=== PATIENT | male | born 1945 | race Caucasian/White ===

== ENCOUNTER 2018-09-07 02:19 | Outpatient (CLI) | payer MEDICARE, SELFPAY ==
[2018-09-07 11:53] LABS: Anion Gap 9.4 mmol/L (3-11); BUN 22 mg/dL (7-18); CO2 28.6 mmol/L (21.0-32.0); CREATININE 0.89 mg/dL (0.70-1.30); Calcium 8.8 mg/dL (8.5-10.1); Chloride 105 mmol/L (98-107); Cholesterol 147 mg/dL (50-200); Glucose 88 mg/dL (70-100); HDL Cholesterol 51 mg/dL (40-60); LDL CHOLESTEROL 84 mg/dL (<100); Potassium 4.3 mmol/L (3.5-5.1); Sodium 143 mmol/L (136-145); Triglyceride 77 mg/dL (30-150)
== END 2018-09-07 02:39 ==
PROVIDERS: PCP Family Medicine; Visit Provider Family Medicine
DX: I25.10 Atherosclerotic heart disease of native coronary artery without angina pectoris (principal)
CPT/HCPCS: 36415; 80048; 80061; 83721

== ENCOUNTER 2018-09-13 11:17 | Day surgery (SDC) | payer MEDICARE, SELFPAY ==
[2018-09-13] MEDS: Lactated Ringers 1,000 ML 30 ML IV (12:00)
--- NOTE | 2018-09-13 13:08 | W.COLOREPORT ---
Date of service: 09/13/18 Time of Service: 13:09 Colonoscopy Report Date of procedure: 09/13/18 Pre-op diagnosis general: Family History of colon cancer Post-op diagnosis procedure note: other (Normal Colon to the cecum) Procedure: Colonoscopy to the cecum Surgeon: Adonis Sandoval Anesthesia proc note operative: MAC (Simi Romero CRNA; ASA 2 Mallampati class II) Estimated blood loss (mL): 0 Pathology: none sent Complications: None Disposition: same day Indications: 73-year-old male presenting for colorectal cancer screening with a family history of colorectal cancer. He is been asymptomatic since last colonoscopy which was unremarkable. The procedure has been reviewed with him in the risks discussed. All his questions were answered to his satisfaction. Consent was obtained to proceed with colonoscopy. Prep: Miralax/Dulcolax (Colon prep excellent) Findings: Examined the colon from cecum to anus, no abnormalities were noted. Procedure Description: The patient was seen in the day surgery waiting area. His identification was confirmed, and procedure checked. He was then brought to the procedure room. Monitoring for telemetry, blood pressure, oxygen saturation, and end tidal CO2 monitoring were applied. An appropriate time out was performed to confirm, identification, allergies, medication, procedure, was performed. Sedation was titrated for affect by the ROTARY MACHINE OPERATOR; Once adequate sedation was achieved, I performed a inspection of the external perineum, and a digitial rectal examination. No significant external abnormalities were noted. On digital rectal examination, there was no blood, no masses, good rectal tone, and a normal prostate. I advanced the colonoscope from the anus to the cecum under direct visualization. The cecum was identified by the ileal-cecal valve, and the appendiceal orifice. The scope was then withdrawn in circumferential manner from the cecum to the rectum. No abnormalites were noted in the colon. The scope was then withdrawn into the rectum, and retroflexed. No abnormalities were noted of the rectum or anorectal junction. The scope was then withdrawn, terminating the procedure. There were no complications during the procedure, and the patient tolerated the procedure well. He was returned to the day surgery recovery area in good condition. Plan: Will continue with routine screening for colorectal cancer according to current consensus guidelines, which is currently 5 years.
--- NOTE | 2018-09-13 13:16 | PDOC.DSDIS_ITS ---
Discharge Plan Disposition Patient Disposition: HOME Condition: Good Discharge Details Reason For Visit: colorectal cancer screening Attending Provider: Adonis Sandoval Primary Care Provider: Kenan Blair Home Meds and New Rx's Prescriptions: Continue bisacodyl [Dulcolax (bisacodyl)] 5 mg tablet,delayed release (DR/EC) 5 mg PO ONCE Qty: 4 RF: 0 polyethylene glycol 3350 17 gram/dose powder 255 g PO ONCE Qty: 255 RF: 0 nitroglycerin [Nitrostat] 0.3 MG tablet, sublingual 1 tab Buccal QD PRNRF: 0 aspirin [Aspirin Low-Strength] 81 MG tablet,chewable 1 tab PO QD RF: 0 lorazepam 0.5 MG tablet 1 tab PO DAILY PRNQty: 30 RF: 0 simvastatin 20 MG tablet 1 tab PO HS Qty: 90 RF: 4 lisinopril 2.5 MG tablet 1 tab PO DAILY Qty: 90 RF: 4 Discharge Instructions Instructions: Colonoscopy (DC) Stand Alone Forms: Colonoscopy Post Instructions, Rafael Mcfadden (DSU) Activity:: Activity as Tolerated Diet:: As Tolerated Discharge Orders Discharge Orders: Discharge Order (Routine); Ordered 09/13/18 Ordered By: Adonis Sandoval DS: Diagnosis Discharge Diagnosis (1) Family history of colon cancer: Status: Acute Asessment and Plan: Colonoscopy performed: Colonoscopy Report Date of procedure: 09/13/18 Pre-op diagnosis general: Family History of colon cancer Post-op diagnosis procedure note: other (Normal Colon to the cecum) Procedure: Colonoscopy to the cecum Surgeon: Adonis Sandoval Anesthesia proc note operative: MAC (Simi Romero CRNA; ASA 2 Mallampati class II) Estimated blood loss (mL): 0 Pathology: none sent Complications: None Disposition: same day Indications: 73-year-old male presenting for colorectal cancer screening with a family history of colorectal cancer. He is been asymptomatic since last colonoscopy which was unremarkable. The procedure has been reviewed with him in the risks discussed. All his questions were answered to his satisfaction. Consent was obtained to proceed with colonoscopy. Prep: Miralax/Dulcolax (Colon prep excellent) Findings: Examined the colon from cecum to anus, no abnormalities were noted. Procedure Description: The patient was seen in the day surgery waiting area. His identification was confirmed, and procedure checked. He was then brought to the procedure room. Monitoring for telemetry, blood pressure, oxygen saturation, and end tidal CO2 monitoring were applied. An appropriate time out was performed to confirm, identification, allergies, medication, procedure, was performed. Sedation was titrated for affect by the CAPACITOR PACK PRESS OPERATOR; Once adequate sedation was achieved, I performed a inspection of the external perineum, and a digitial rectal examination. No significant external abnormalities were noted. On digital rectal examination, there was no blood, no masses, good rectal tone, and a normal prostate. I advanced the colonoscope from the anus to the cecum under direct visualization. The cecum was identified by the ileal-cecal valve, and the appendiceal orifice. The scope was then withdrawn in circumferential manner from the cecum to the rectum. No abnormalites were noted in the colon. The scope was then withdrawn into the rectum, and retroflexed. No abnormalities were noted of the rectum or anorectal junction. The scope was then withdrawn, terminating the procedure. There were no complications during the procedure, and the patient tolerated the procedure well. He was returned to the day surgery recovery area in good condition. Plan: Will continue with routine screening for colorectal cancer according to current consensus guidelines, which is currently 5 years.
[2018-09-13 13:45] VITALS: BP 130/78; PULSE 72; RESP 16; TEMP 36.2; O2SAT 98
== END 2018-09-13 14:18 | disposition home or self-care (01) ==
PROVIDERS: PCP Family Medicine; Visit Provider Surgery
PROC: 0DJD8ZZ Inspection of Lower Intestinal Tract, Via Natural or Artificial Opening Endoscopic (ICD-10-PCS; CPT 45378; principal; 2018-09-13 12:45)
DX: Z12.11 Encounter for screening for malignant neoplasm of colon (principal); Z80.0 Family history of malignant neoplasm of digestive organs; I10 Essential (primary) hypertension
CPT/HCPCS: G0105

== ENCOUNTER 2019-09-17 00:17 | Outpatient (CLI) | payer MEDICARE, SELFPAY ==
[2019-09-17 11:51] LABS: BUN 17 mg/dL (7-18); CREATININE 0.87 mg/dL (0.70-1.30); Calculated LDL 83 mg/dL; Chloride 105 mmol/L (98-107); Cholesterol 154 mg/dL (<200); Glucose 91 mg/dL (74-106); HDL Cholesterol 55 mg/dL (40-60); Potassium 4.9 mmol/L (3.5-5.1); Sodium 143 mmol/L (136-145); Triglyceride 84 mg/dL (<150)
== END 2019-09-17 00:37 ==
PROVIDERS: PCP Family Medicine; Visit Provider Family Medicine
DX: I25.10 Atherosclerotic heart disease of native coronary artery without angina pectoris (principal)
CPT/HCPCS: 36415; 80048; 80061

== ENCOUNTER 2022-06-18 01:28 | Outpatient (CLI) | payer MEDICARE, SELFPAY ==
--- OUTSIDE RECORDS SUMMARY | 2022-06-18 01:34 | XMS_ITS | CCD ---
:1945 Author Care Team Providers Name Role Phone JUVE BARNES Attending Physician Unavailable JUVE BARNES Rounding (Secondary) Physician Unavailab le Vital Signs Unknown or Not Available. Allergies Allergy Code Allergy Type Reaction Status No Known Drug Allergies 0 No known drug allergies Active Procedures Unknown or Not Available. 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 Active Medications Medication Code Dose Units Frequency Route Modification Start Date/Time Aspirin 81MG 111338 81 MILLIGRAMS DAILY ORAL 11/27/19 15 Oral Tablet, 16:27 Enteric Coated Prescription Detail TAKE 81 MILLIGRAMS ORAL YASSINE Y Lisinopril 2.5MG Oral 628532 2.5 MILLIGRAMS DAILY ORAL 11/27/2014 16:27 Tablet Prescription Detail TAKE 2.5 MILLIGRAMS ORAL CATHY LY Nitroglycerin 0.4MG 269607 0.4 MILLIGRAMS NEEDED SUBLINGUAL 11/27/2014 Sublingual Tablet 16:27 Prescription Detail DISSOLVE 0.4 MILLIGRAMS SUBL INGUAL NEEDED Simvastatin 20MG Oral 968219 20 MILLIGRAMS DAILY ORAL 11/27/2014 16:27 Tablet Prescription Detail TAKE 20 MILLIGRAMS ORAL YASSINE Y Medications Administered During Visit Unknown or Not Available. Encounters Encounter Diagnosis Diagnosis Code Start Date Atherosclerotic heart disease of [place] coronary artery I251 0 02/12/2022 without angina pectoris Social History Smoking Status Code Start Date End Date Never smoker [id number] Patient Decision Aids Unknown or Not Available. Discharge Instructions You were admitted to [facility] on 02/12/2022 09:04 with a principal diagnosis of Atherosclerotic heart disease of [place] coronary artery without angina pectoris You were discharged from [facility] on 02/12/2022 00:00 Should you have any questions prior to d ischarge, please contact a member of your healthcare team. If you have left the [facility] and have any questions, please contact your primary care physician. Chief Complaint and Reason For Visit Unknown or Not Available. Function Status Unknown or Not Available. Plan of Care Unknown or Not Available. Referral/Transition of Care Unknown or Not Available.
--- OUTSIDE RECORDS SUMMARY | 2022-06-18 01:34 | XMS_ITS | CCD ---
:1945 Author Care Team Providers Name Role Phone MINERVA VICENTE Attending Physician Unavailable MINERVA VICENTE Rounding (Secondary) Physician Unavailab le Vital Signs Unknown or Not Available. Allergies Allergy Code Allergy Type Reaction Status No Known Drug Allergies 0 No known drug allergies Active Procedures Unknown or Not Available. 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 0 LDL/HDL Ratio 66541-6 0.9 L=0.0 H=3.5 CHD Relative Risk. 0.3 x Avg L=0.0 H=1 .0 FASTING STATUS: NON FASTING N/A Active Medications Medication Code Dose Units Frequency Route Modification Start Date/Time Aspirin 81MG 623660 81 MILLIGRAMS DAILY ORAL 11/27/19 15 Oral Tablet, 16:27 Enteric Coated Prescription Detail TAKE 81 MILLIGRAMS ORAL YASSINE Y Lisinopril 2.5MG Oral 003479 2.5 MILLIGRAMS DAILY ORAL 11/27/2014 16:27 Tablet Prescription Detail TAKE 2.5 MILLIGRAMS ORAL CATHY LY Nitroglycerin 0.4MG 220978 0.4 MILLIGRAMS NEEDED SUBLINGUAL 11/27/2014 Sublingual Tablet 16:27 Prescription Detail DISSOLVE 0.4 MILLIGRAMS SUBL INGUAL NEEDED Simvastatin 20MG Oral 416324 20 MILLIGRAMS DAILY ORAL 11/27/2014 16:27 Tablet Prescription Detail TAKE 20 MILLIGRAMS ORAL YASSINE Y Medications Administered During Visit Unknown or Not Available. Encounters Encounter Diagnosis Diagnosis Code Start Date Atherosclerotic heart disease of [place] coronary artery I251 0 02/18/2022 without angina pectoris Social History Smoking Status Code Start Date End Date Never smoker [id number] Patient Decision Aids Unknown or Not Available. Discharge Instructions You were admitted to [facility] on 02/18/2022 12:16 with a principal diagnosis of Atherosclerotic heart disease of [place] coronary artery without angina pectoris You had the following tests done: LIPID PANEL* You were discharged from [facility] on 02/18/2022 00:00 Should you have any questions prior to d ischarge, please contact a member of your healthcare team. If you have left the [facility] and have any questions, please contact your primary care physician. Chief Complaint and Reason For Visit Unknown or Not Available. Function Status Unknown or Not Available. Plan of Care Unknown or Not Available. Referral/Transition of Care Unknown or Not Available.
[2022-06-18 08:29] LABS: HCT 44.6 % (40.0-50.0); HGB 14.3 g/dL (13.5-17.5); MCH 32.9 pg (27.0-33.0); MCHC 32.1 % (32.0-36.0); MCV 103 fL (80-95); MPV 10.1 fL (8.0-11.0); Platelet Count 133 10^3/uL (130-400); RBC 4.35 10^6/uL (4.36-5.78); RDW 12.9 % (11.8-14.1); RDW-SD 49.5 fL; WBC 3.53 10^3/uL (4.4-10.8)
[2022-06-18 09:48] LABS: ALT 18 U/L (16-63); AST 12 U/L (15-37); Albumin 3.8 g/dL (3.4-5.0); Alkaline Phosphatase 65 U/L (46-116); Anion Gap 5.7 mmol/L (3-11); BUN 18 mg/dL (7-18); Bilirubin, Total 0.6 mg/dL (0.2-1.0); CO2 31.3 mmol/L (21.0-32.0); CREATININE 0.8 mg/dL (0.70-1.30); Calcium 8.5 mg/dL (8.5-10.1); Chloride 107 mmol/L (98-107); Estimated GFR 92.87 (mL/min/1.73m2); Glucose 93 mg/dL (74-106); Potassium 4.3 mmol/L (3.5-5.1); Sodium 144 mmol/L (136-145); Total Protein 6.7 g/dL (6.4-8.2)
== END 2022-06-18 01:29 | disposition home or self-care (01) ==
LOC: LBO 01:28
PROVIDERS: PCP Student in an Organized Health Care Education/Training Program; Visit Provider Student in an Organized Health Care Education/Training Program
DX: I25.10 Atherosclerotic heart disease of native coronary artery without angina pectoris (principal); Z95.5 Presence of coronary angioplasty implant and graft
CPT/HCPCS: 36415; 80053; 85027

== ENCOUNTER 2022-09-29 02:13 | Outpatient (CLI) | payer MEDICARE, SELFPAY ==
[2022-09-29 10:45] LABS: Absolute Basophil Count 0.02 10^3/uL (0.0-0.2); Absolute Eosinophil Count 0.13 10^3/uL (0.0-0.7); Absolute Lymphocyte Count 1.17 10^3/uL (1.2-3.4); Absolute Monocyte Count 0.44 10^3/uL (0.1-0.8); Absolute Neutrophil Count 2.14 10^3/uL (1.2-6.7); Basophils % 0.5; Eosinophils % 3.3; HCT 46.3 % (40.0-50.0); HGB 15.3 g/dL (13.5-17.5); MCH 33.6 pg (27.0-33.0); MCV 102 fL (80-95); MPV 10.1 fL (8.0-11.0); Monocytes % 11.3; Neutrophils % 54.9; Platelet Count 141 10^3/uL (130-400); RBC 4.56 10^6/uL (4.36-5.78); RDW 13.1 % (11.8-14.1); RDW-SD 49.2 fL
[2022-09-29 11:31] LABS: Iron 99 ug/dL (65-175); Total Iron Binding Capacity 269 ug/dL (250-450); Transferrin Sat 37 % (20-55)
[2022-09-29 11:59] LABS: Ferritin 223 ng/mL (26-388); Vitamin B12 474 pg/mL (193-986)
== END 2022-09-29 02:14 | disposition home or self-care (01) ==
LOC: LBO 02:13
PROVIDERS: PCP Student in an Organized Health Care Education/Training Program; Visit Provider Student in an Organized Health Care Education/Training Program
DX: D64.9 Anemia, unspecified (principal); E46 Unspecified protein-calorie malnutrition; I25.10 Atherosclerotic heart disease of native coronary artery without angina pectoris
CPT/HCPCS: 36415; 82607; 82728; 83540; 83550; 85025

== ENCOUNTER 2023-08-01 06:47 | Observation (INO) | payer MEDICARE, SELFPAY ==
[2023-08-01] VITALS (25 sets, daily range): BP systolic 120–162; BP diastolic 68–97; PULSE 65–89; RESP 8–21; TEMP 35.9–36.9; O2SAT 94–99
--- NOTE | 2023-08-01 | DI.US_ITS ---
Exam(s) US EXTREMITY VENOUS BI EXAM: US EXTREMITY VENOUS BI CLINICAL HISTORY: Bilateral pulmonary emboli. TECHNIQUE: Bilateral lower extremity venous ultrasound performed using grayscale, color-flow, and sp ectral Doppler analysis. COMPARISON: No exams were available for comparison FINDINGS: Right lower extremity: The bilateral common femoral, femoral and popliteal veins demonstrate normal c ompressibility, augmentation, and color Doppler. The posterior tibial veins are patent. No Reaevs's c yst. Left lower extremity: Acute appearing thrombus visible from proximal femoral vein through the calf ve ins. The common femoral, profundus femoral and greater saphenous veins appear free of thrombus. IMPRESSION: Right: Negative for DVT Left: Thrombus visible from proximal femoral veins through the calf veins. DATA REPOSITORY:
--- NOTE | 2023-08-01 06:30 | RT.EKG_ITS ---
APPROVED REPORT Exam: Resting ECG Reason for Exam: SOB Patient Location: E HR:81 bpm ECG Measurements Heart Rate 81 AXIS NM 160 P 53 QRSd 98 QRS 32 QT 393 T 49 QTc 457 Conclusion Sinus rhythm...normal P axis, V-rate 60- 99 Inferior infarct, old...Q >35mS, II III aVF Physician: no stemi, q wave in III and AVF
--- NOTE | 2023-08-01 06:56 | W.ED.GENAD ---
Discharge Plan Disposition Patient Disposition: Admit to [facility] Discharge Details Clinical Impression: Pulmonary embolism, bilateral Admit Date/Time: 08/01/23 10:11 Admit Provider: Dony Kim Attending Provider: Dony Kim Primary Care Provider: Lisa Akers ED Provider: He Rivero Discharge Data Discharge Date/Time-TO BE ENTERED AT DEPARTURE: 08/01/23 11:59 Medical Decision Making This is a pleasant 77-year-old male with a past medical history of previous coronary artery disease and stents 10 years ago, mild hypertension, mild anxiety, who presents today for evaluation of shortness of breath. Patient states that 3 days ago he had a dental procedure, where tooth was extracted. It was a minor procedure. No long trips or flights otherwise. 2 days ago he noticed that while doing normal activities he was extremely short of breath and winded. Activities that he does on a daily basis now became more physically challenging. He also admits to feeling slightly lightheaded during these activities. He denies any syncope. He does admit to feeling tired and fatigued in general compared to normal. This morning it was notably worse, EMS was called and he was brought to the ER for further assessment. He denies any chest pain, bandlike sensation around his chest, arm shoulder or neck pain. He states that the symptoms that he has been having for the last 2 days was identical to when he had his previous coronary artery disease diagnosed and stented. He was given 4 baby aspirin by EMS. No other complaints at this time. No cough, fever, vomiting or diarrhea. Exam demonstrates a well-appearing male, pulses intact bilaterally +2. No calf tenderness. No significant pitting edema. Vital signs stable. Differential includes pulmonary embolism, ACS, pneumonia, EKG shows no evidence of STEMI. We will evaluate for these concerning etiologies, monitor closely and reassess. Symptoms at this time appear clinically inconsistent with dissection. HPI General Date/Time Provider Initiated Documentation: 08/01/23 06:55. HPI Narrative: This is a pleasant 77-year-old male with a past medical history of previous coronary artery disease and stents 10 years ago, mild hypertension, mild anxiety, who presents today for evaluation of shortness of breath. Patient states that 3 days ago he had a dental procedure, where tooth was extracted. It was a minor procedure. No long trips or flights otherwise. 2 days ago he noticed that while doing normal activities he was extremely short of breath and winded. Activities that he does on a daily basis now became more physically challenging. He also admits to feeling slightly lightheaded during these activities. He denies any syncope. He does admit to feeling tired and fatigued in general compared to normal. This morning it was notably worse, EMS was called and he was brought to the ER for further assessment. He denies any chest pain, bandlike sensation around his chest, arm shoulder or neck pain. He states that the symptoms that he has been having for the last 2 days was identical to when he had his previous coronary artery disease diagnosed and stented. He was given 4 baby aspirin by EMS. No other complaints at this time. No cough, fever, vomiting or diarrhea. Related Data Home Medications Medication Instructions Recorded Confirmed aspirin 81 mg chewable tablet 1 tab PO QD 06/17/15 08/01/23 (Aspirin Low-Strength) nitroglycerin 0.3 mg sublingual 1 tab buccal QD PRN 06/17/15 08/01/23 tablet (Nitrostat) lorazepam 0.5 mg tablet 0.5 mg PO DAILY PRN anxiety, panic 09/21/22 08/01/23 #30 tabs lisinopril 2.5 mg tablet 2.5 mg PO DAILY #90 tabs 01/30/23 08/01/23 simvastatin 20 mg tablet See Rx Instructions .Route 03/12/23 08/01/23 .COMPLEX #90 tabs Previous Rx's Medication Instructions Recorded lorazepam 0.5 mg tablet 0.5 mg PO DAILY PRN anxiety, panic 09/21/22 #30 tabs lisinopril 2.5 mg tablet 2.5 mg PO DAILY #90 tabs 01/30/23 simvastatin 20 mg tablet See Rx Instructions .Route 03/12/23 .COMPLEX #90 tabs Allergies Allergy/AdvReac Type Severity Reaction Status Date / Time No Known Allergies Allergy Verified 08/01/23 07:01 General Stated Complaint: SOB CYNDY: 3 Review of Systems All systems reviewed & are unremarkable except as noted in HPI and below PFSH All Active Problems Pulmonary embolism, bilateral (Acute) Vascular insufficiency of extremity (Acute) Edema (Acute) Bilateral sensorineural hearing loss (Acute) Tinnitus (Acute) CAD (coronary artery disease) (Acute 08/11/11) 01/09/13; ; STRESS TEST;PER DR. GARCIA RECORDS (NSTEMI, 08/2011, [facility], Cardio Dr Menendez) Pure hypercholesterolemia, unspecified (Chronic) Goal LDL <70, Cardiology Shoulder joint pain (Chronic) Hx rt shoulder pain, overuse? Discoloration of skin of foot (Acute) Varicose veins of left lower extremity (Acute) Anxiety (Chronic) Stress due to illness of family member (Acute) Medical History Hx of low back pain annual sensation of muscle spasms .. usually fine Hx of colonic polyps Family history of colon cancer (05/14/13) Mo, Fa (+) colon cancer and polyp (+) @ 62yo. Surgical History History of appendectomy Status post coronary artery stent placement H/O colonoscopy (09/13/18) 09/13/18 dr lira, no abnormalities, repeat in five years. Stent placement 08/11/11 (R) RCA STENT; NON STEMI Family History Mother , AGE 86 Breast cancer Colon cancer Father , AGE 45 Colon cancer Sister Heart disease PACEMAKER Breast cancer Social History Smoking/Tobacco Use Status: Never Smoking risk assessment performed?: Yes Alcohol Intake: current Alcohol Intake frequency: a few times a week Alcohol type: wine Drug use: Never Substance use type: does not use Caregiver/Support person: No Household members: significant other Housing: house Communication Needs: None Do you need help understanding health information?: Rarely current occupation: Retired Pets and animals: No Do you think of yourself as: straight/heterosexual Current gender identity: male What is your relationship status?: living with partner How often do you talk on the phone with friends or family?: decline to answer How often do you get together with friends or relatives?: decline to answer How often do you attend religious or moravian services?: decline to answer Do you belong to any clubs or organized social groups?: decline to answer Panel score (0-1 are the most socially isolated patients): 1 What type of physical activity do you participate in: weight lifting and other Details: rowing Duration: 15-30 minutes/day Frequency: 5-6 times per week Sheri/Judaism: No preference Special sheri needs: No Seatbelt use: always Drive intox or ride w/intox tier truck driver: No Exam Narrative Exam Narrative: 1.Const: Well-nourished, Well-developed, appearing stated age 2.Eyes: PERRL, no conjunctival injection, and symmetrical lids. 3.ENT: Atraumatic external nose and ears. Moist MM. Neck: Symmetric, trachea midline, No thyromegaly. 4.CVS: +S1/S2, No murmurs or gallops. Peripheral pulses 2+ and equal in all extremities. Brisk capillary refill in all extremities. 5.RESP: Unlabored respiratory effort. Clear to auscultation bilaterally. No wheezes rales or rhonchi 6.GI: Soft, Nontender/Nondistended, No hepatosplenomegaly. No guarding or rebound. 7.MSK: Normocephalic/Atraumatic, Extremities w/o deformity or ttp No cyanosis or clubbing, Normal movement of all extremities 8.Skin: Warm, Dry. No rashes or lesions. 9.Neuro: cryptographic clerk II-XII grossly intact. Sensation grossly intact, no focal neurologic deficits. 10.Psych: (AAO) x3. Appropriate mood and affect Course Vital Signs Vital signs: Vital Signs Temperature 36.9 C 08/01/23 06:39 Pulse 83 08/01/23 06:39 Respiratory Rate 16 08/01/23 06:39 Blood Pressure 162/97 H 08/01/23 06:39 Pulse Oximetry 98 08/01/23 06:39 Temperature 36.9 C 08/01/23 06:39 Temperature Source Temporal Artery Scan 08/01/23 06:39 Pulse 83 08/01/23 06:39 Respiratory Rate 16 08/01/23 06:39 Respiratory Effort Normal 08/01/23 06:50 Blood Pressure 162/97 H 08/01/23 06:39 Blood Pressure Position Supine 08/01/23 06:39 Pulse Oximetry 98 08/01/23 06:39 Oxygen Delivery Method Room Air 08/01/23 06:39 Oxygen Flow Rate 0 08/01/23 06:39 Pain Level 0 08/01/23 06:39 Sign Out Sign Out Data: Sign Out Comment: Chest pain, follow-up on labs and delta troponin as well as CT imaging. Last updated by Antonio Easley DO at 08/01/23 07:05
[2023-08-01 07:12] LABS: BE (Venous) 4 mmol/L (-2-3); HCO3 (Venous) 28 mmol/L (23-28); O2 Sat (Venous) 61 %; TCO2 (Venous) 25 mmol/L (24-29); pCO2 (Venous) 45 mmHg (41-51); pH (Venous) 7.41 (7.31-7.41); pO2 (Venous) 32 mmHg
[2023-08-01 07:18] LABS: Abs Immature Grans 0.01 10^3/uL (0.0-0.06); Absolute Basophil Count 0.03 10^3/uL (0.0-0.2); Absolute Eosinophil Count 0.18 10^3/uL (0.0-0.7); Absolute Lymphocyte Count 1.28 10^3/uL (1.2-3.4); Absolute Monocyte Count 0.44 10^3/uL (0.1-0.8); Absolute Neutrophil Count 2.94 10^3/uL (1.2-6.7); Basophils % 0.6; Eosinophils % 3.7; HCT 42.6 % (40.0-50.0); HGB 14.3 g/dL (13.5-17.5); Immature Grans % 0.2; Lymphocytes % 26.2; MCH 33.6 pg (27.0-33.0); MCHC 33.6 % (32.0-36.0); MCV 100 fL (80-95); MPV 9.8 fL (8.0-11.0); Neutrophils % 60.3; Platelet Count 143 10^3/uL (130-400); RBC 4.25 10^6/uL (4.36-5.78); RDW 13.6 % (11.8-14.1); RDW-SD 50.5 fL; WBC 4.88 10^3/uL (4.4-10.8)
[2023-08-01 07:34] LABS: INR 1.1 (0.9-1.1); PTT Activated 33.4 sec (23.6-32.8); Prothrombin Time 10.8 sec (9.1-11.1)
[2023-08-01 07:42] LABS: ALT 20 U/L (16-63); AST 14 U/L (15-37); Albumin 3.6 g/dL (3.4-5.0); Alkaline Phosphatase 83 U/L (46-116); BUN 20 mg/dL (7-18); Bilirubin, Total 0.8 mg/dL (0.2-1.0); CREATININE 0.8 mg/dL (0.70-1.30); Chloride 105 mmol/L (98-107); Estimated GFR 92.29 (mL/min/1.73m2); Glucose 99 mg/dL (74-106); Potassium 3.6 mmol/L (3.5-5.1); Sodium 139 mmol/L (136-145); TSH (W/Ref FT4) 5.67 uIU/mL (0.36-3.74); Total Protein 7.2 g/dL (6.4-8.2); Troponin I < 50 ng/L (<or=60)
[2023-08-01 07:57] LABS: FREE T4 1.08 ng/dL (0.76-1.46)
[2023-08-01 08:01] LABS: COVID-19 PCR Negative (Negative); Influenza A PCR Negative (Negative); Influenza B PCR Negative (Negative); RSV PCR Negative (Negative)
[2023-08-01 08:05] LABS: Source Nasopharynx
[2023-08-01] MEDS: Normal Saline - Diluent 50 ML VIAL IJ (08:14)
[2023-08-01] MEDS: Omnipaque 350 MG/ML 500 ML BTL-Imaging package 71 ML IJ (08:16)
--- NOTE | 2023-08-01 08:20 | DI.CT_ITS ---
Exam(s) CT CHEST PE CTA EXAM: CT CHEST PE CTA CLINICAL HISTORY: sob, recent surgical procedure, eval for clot. TECHNIQUE: Imaging Protocol: CT angiography of the chest was performed using pulmonary embolus amber col. Multi planar reconstructions were performed. CONTRAST MATERIAL: Intravenous: Omnipaque 350 Contrast volume: 100 cc COMPARISON: No exams were available for comparison FINDINGS: CHEST: PULMONARY ARTERIES: There are numerous bilateral intraluminal filling defects involving all lobes bot h lungs consistent with extensive bilateral pulmonary emboli. The start at and distal to the distal aspect of the main pulmonary arteries bilaterally. LUNGS: There are mild increased markings both lung bases but no confluent infiltrates. No evidence o f focal pulmonary infarction at this time. No ominous pulmonary nodules. No findings in trachea and mainstem bronchi.. There are no pleural effusions. MEDIASTINUM: There is no hilar nor mediastinal adenopathy. Visualized thyroid unremarkable. CARDIAC: Heart size is upper normal. There is no pericardial effusion.Caliber of the thoracic aorta is within normal limits. No dissection evident. LV/RV ratio is 1:1 PARTIALLY VISUALIZED UPPERMOST ABDOMEN: There is no contrast reflux into the intrahepatic IVC. No ad renal masses. Cholelithiasis noted. There are few well-defined hypodensities in the right hepatic l obe which are probably cysts. Largest of these measures 2.5 x 1.8 cm. OSSEOUS: No significant osseous lesions.No fractures.. IMPRESSION: 1. This study is positive for presence of extensive bilateral pulmonary emboli. There is presently n o evidence of pulmonary infarction, confluent infiltrates, nor pleural effusions. Ventricular ratio is a approximately 1:1 2. No evidence of aortic dissection nor pericardial effusion. 3. Other findings as above. Called by myself to ER 08/01/2023 8:40 a.m. RADIATION DOSE DELIVERED: Total DLP DATA REPOSITORY: All CT scans at this facility are submitted to the National Radiology Data Registry (NRDR) Dose Index Registry (DIR) with the [employer] (ACR). RADIATION OPTIMIZATION: All CT scans at this facility use at least one of these dose optimization te chniques: automated exposure control; mA and/or kV adjustment per patient size (includes targeted exa ms where dose is matched to clinical indication); or iterative reconstruction.
[2023-08-01] MEDS: Enoxaparin 80 MG/0.8 ML SYR SC (09:28)
[2023-08-01 10:22] LABS: Troponin I < 50 ng/L (<or=60)
--- NOTE | 2023-08-01 11:56 | ED.PROG_ITS ---
Date of service: 08/01/23 Time of Service: 09:00 Medical Decision Making Care signed out by Dr. Easley, please see his documentation regarding initial ED presentation course. Plan at signout was to follow-up on CT imaging and determine disposition. CT of the chest was interpreted by radiology: Multiple bilateral extensive pulmonary emboli with no right heart strain. I spoke with the radiologist about the study. Results and treatment plan discussed with patient and family. I have initiated treatment with Lovenox 1 mg/kg IV. I have called and spoken with the hospitalist on-call, Dr. Lewis, discussed ED presentation and course, he will admit the patient. Imaging Data Radiologic Study: Imaging: CT Scan Radiologist's impression: COMPARISON: No exams were available for comparison FINDINGS: CHEST: PULMONARY ARTERIES: There are numerous bilateral intraluminal filling defects involving all lobes both lungs consistent with extensive bilateral pulmonary emboli. The start at and distal to the distal aspect of the main pulmonary arteries bilaterally. LUNGS: There are mild increased markings both lung bases but no confluent infiltrates. No evidence of focal pulmonary infarction at this time. No ominous pulmonary nodules. No findings in trachea and mainstem bronchi.. There are no pleural effusions. MEDIASTINUM: There is no hilar nor mediastinal adenopathy. Visualized thyroid unremarkable. CARDIAC: Heart size is upper normal. There is no pericardial effusion.Caliber of the thoracic aorta is within normal limits. No dissection evident. LV/RV rat io is 1:1 PARTIALLY VISUALIZED UPPERMOST ABDOMEN: There is no contrast reflux into the intrahepatic IVC. No adrenal masses. Cholelithiasis noted. There are few well-defined hypodensities in the right hepatic lobe which are probably cysts. Largest of these measures 2.5 x 1.8 cm. OSSEOUS: No significant osseous lesions.No fractures.. IMPRESSION: 1. This study is positive for presence of extensive bilateral pulmonary emboli. There is presently no evidence of pulmonary infarction, confluent infiltrates, nor pleural effusions. Ventricular ratio is a approximately 1:1 2. No evidence of aortic dissection nor pericardial effusion. 3. Other findings as above. Lab Data Lab results reviewed: Yes I reviewed the patient's lab results. Labs: Laboratory Tests Range/Units 08/01/23 08/01/23 08/01/23 06:50 06:50 07:10 WBC (4.4-10.8) 10^3/uL 4.88 RBC (4.36-5.78) 10^6/uL 4.25 L Hgb (13.5-17.5) g/dL 14.3 Hct (40.0-50.0) % 42.6 MCV (80-95) fL 100 H MCH (27.0-33.0) pg 33.6 H MCHC (32.0-36.0) % 33.6 RDW (11.8-14.1) % 13.6 Plt Count (130-400) 10^3/uL 143 MPV (8.0-11.0) fL 9.8 Immature Gran % 0.2 Neutrophils % 60.3 Lymphocytes % 26.2 Monocytes % 9.0 Eosinophils % 3.7 Basophils % 0.6 Nucleated RBC % (0.0-0.3) % 0.0 Absolute Neutrophils (1.2-6.7) 10^3/uL 2.94 Absolute Lymphocytes (1.2-3.4) 10^3/uL 1.28 Absolute Monocytes (0.1-0.8) 10^3/uL 0.44 Absolute Eosinophils (0.0-0.7) 10^3/uL 0.18 Absolute Basophils (0.0-0.2) 10^3/uL 0.03 PT (9.1-11.1) sec 10.8 INR (0.9-1.1) 1.1 APTT (23.6-32.8) sec 33.4 H VBG pH (7.31-7.41) 7.41 VBG pCO2 (41-51) mmHg 45 VBG pO2 mmHg 32 VBG HCO3 (23-28) mmol/L 28 VBG Total CO2 (24-29) mmol/L 25 VBG O2 Saturation % 61 VBG Base Excess (-2-3) mmol/L 4 H Sodium (136-145) mmol/L 139 Potassium (3.5-5.1) mmol/L 3.6 Chloride (98-107) mmol/L 105 Carbon Dioxide (21.0-32.0) mmol/L 28.0 Anion Gap (3-11) mmol/L 6.0 BUN (7-18) mg/dL 20 H Creatinine (0.70-1.30) mg/dL 0.8 Est GFR (CKD-EPI 2020) (mL/min/1.73m2) 92.29 Glucose (74-106) mg/dL 99 Calcium (8.5-10.1) mg/dL 9.0 Total Bilirubin (0.2-1.0) mg/dL 0.8 AST (15-37) U/L 14 L ALT (16-63) U/L 20 Alkaline Phosphatase (46-116) U/L 83 Troponin I (<or=60) ng/L < 50 Total Protein (6.4-8.2) g/dL 7.2 Albumin (3.4-5.0) g/dL 3.6 TSH (0.36-3.74) uIU/mL 5.67 H Cancelled Free T4 (0.76-1.46) ng/dL 1.08 COVID-19 Source Nasopharynx SARS-CoV-2 (PCR) (Negative) Negative Influenza Type A (PCR) (Negative) Negative Influenza Type B (PCR) (Negative) Negative RSV (PCR) (Negative) Negative Range/Units 08/01/23 10:00 WBC (4.4-10.8) 10^3/uL RBC (4.36-5.78) 10^6/uL Hgb (13.5-17.5) g/dL Hct (40.0-50.0) % MCV (80-95) fL MCH (27.0-33.0) pg MCHC (32.0-36.0) % RDW (11.8-14.1) % Plt Count (130-400) 10^3/uL MPV (8.0-11.0) fL Immature Gran % Neutrophils % Lymphocytes % Monocytes % Eosinophils % Basophils % Nucleated RBC % (0.0-0.3) % Absolute Neutrophils (1.2-6.7) 10^3/uL Absolute Lymphocytes (1.2-3.4) 10^3/uL Absolute Monocytes (0.1-0.8) 10^3/uL Absolute Eosinophils (0.0-0.7) 10^3/uL Absolute Basophils (0.0-0.2) 10^3/uL PT (9.1-11.1) sec INR (0.9-1.1) APTT (23.6-32.8) sec VBG pH (7.31-7.41) VBG pCO2 (41-51) mmHg VBG pO2 mmHg VBG HCO3 (23-28) mmol/L VBG Total CO2 (24-29) mmol/L VBG O2 Saturation % VBG Base Excess (-2-3) mmol/L Sodium (136-145) mmol/L Potassium (3.5-5.1) mmol/L Chloride (98-107) mmol/L Carbon Dioxide (21.0-32.0) mmol/L Anion Gap (3-11) mmol/L BUN (7-18) mg/dL Creatinine (0.70-1.30) mg/dL Est GFR (CKD-EPI 2020) (mL/min/1.73m2) Glucose (74-106) mg/dL Calcium (8.5-10.1) mg/dL Total Bilirubin (0.2-1.0) mg/dL AST (15-37) U/L ALT (16-63) U/L Alkaline Phosphatase (46-116) U/L Troponin I (<or=60) ng/L < 50 Total Protein (6.4-8.2) g/dL Albumin (3.4-5.0) g/dL TSH (0.36-3.74) uIU/mL Free T4 (0.76-1.46) ng/dL COVID-19 Source SARS-CoV-2 (PCR) (Negative) Influenza Type A (PCR) (Negative) Influenza Type B (PCR) (Negative) RSV (PCR) (Negative) Critical Care Time Critical Care Time Critical Care Time: Yes Total Critical Care Time: 38 Attestation: I spent greater than 37 minutes addressing this patient's immediate life threats. Please see MDM section of note. This time was spent engaged in work directly related to the patient's care, exclusive of separate procedures, and failure to initiate these interventions would have likely resulted in clinically significant or life threatening deterioration in the patient's condition. Sign Out Sign Out Data: Sign Out Comment: Chest pain, follow-up on labs and delta troponin as well as CT imaging. Last updated by Antonio Easley DO at 08/01/23 07:05 Discharge Plan Disposition Patient Disposition: Admit to [facility] Discharge Details Chief Complaint: SOB Clinical Impression: Pulmonary embolism, bilateral Admit Date/Time: 08/01/23 10:11 Admit Provider: Dony Kim Attending Provider: Dony Kim Primary Care Provider: Lisa Akers ED Provider: He Rivero
--- NOTE | 2023-08-01 15:23 | HPE_ITS ---
Date of service: 08/01/23 Time of Service: 15:23 Assessment and Plan Assessment and plan (1) Pulmonary embolism, bilateral: Status: Acute Assessment and plan: Unprovoked PE however he does have a history of colon polyps and family history of colon cancer therefore I think he needs further work-up as an outpatient including follow-up colonoscopy. Patient will be started on apixaban tonight and continue on 10 mg twice a day for the next week and then 5 mg twice daily for 3 months. Provide patient has no signs or symptoms of worsening PE such as hypoxemia or tachycardia and he will be discharged in the morning. Formal echocardiogram was ordered for today but the echocardiogram durable medical equipment technician had to make studies to perform today and could not get to them. Formal echocardiogram will be performed in the morning along with venous duplex of his legs. History of Present Illness History of Present Illness Chief Complaint: dyspnea Narrative: 77-year-old male non-smoker with history of coronary artery disease status post 2 previous stents about 10 years ago was followed by his microsoft exchange architect Dr. Menendez, in [facility]. Patient states that over the weekend he had episode of exertional dyspnea not associated with any chest pain no occurred while doing some laundry at home but improved with rest. When he had a second episode while trying to work on his exercise bike he stopped again and was worried that he might be having similar anginal symptoms to when he had his coronary stents. Debated whether or not to come to the hospital but because dyspnea eased off and was not associated with any chest pain he decided to wait over the weekend. He rested Tuesday had no further episodes on Tuesday but then this morning had severe episode of dyspnea this morning that was unprovoked. Patient was evaluated in the emergency department routine labs EKG and a CTA of his chest. CT of his chest showed extensive bilateral pulmonary emboli with no evidence of pulmonary infarction no pleural effusions or infiltrates and no evidence of right ventricular strain. CBC was unremarkable except for some mild macrocytosis. CMP was unremarkable and 2 troponins were less than 50. proBNP was not checked. EKG demonstrated normal sinus rhythm with inferior Q waves consistent with previous inferior infarct. No acute ST elevation no evidence of right ventricular strain. Patient was started on enoxaparin 80 mg subcutaneously in the emergency department in the ED provider asked that the hospitalist service admit the patient to hospital. Of note patient was never tachycardic and never hypotensive or hypoxemic. Per HESTIA criteria, he would have been eligible for outpatient treatment of his P.E. w/ a D.O.A.C. He will be observed overnight, started on Eliquis 10 mg bid tonight for next 7 days, then 5 mg bid for 3 months. I discussed w/ him provoked vs unprovoked causes for P.E. and his need for anticoagulation for minimum of 3 months. I also explained to him to be sure that he gets his routine cancer screenings. He has hx of colon polyps and FH of colon cancer and is scheduled for c-scope in October. Patient has no other risks that I can identify, i.e. non-smoker, no prolonged car or airplane rides, no COVID and no FH for thromboembolism. He recently had dental surgery for removal of remnants of residual tooth. I told him that he may need to remain on antibiotics and defer the dental procedure until after completion of his anticoagulation. Review of Systems All systems reviewed & are unremarkable except as noted in HPI and below Cardiovascular Cardiovascular: Reports as per HPI Respiratory Respiratory: Reports as per HPI PFSH All Active Problems Pulmonary embolism, bilateral (Acute) Vascular insufficiency of extremity (Acute) Edema (Acute) Bilateral sensorineural hearing loss (Acute) Tinnitus (Acute) CAD (coronary artery disease) (Acute 08/11/11) 01/09/13; [facility]; STRESS TEST;PER DR. GARCIA RECORDS (NSTEMI, 08/2011, [facility], Cardio Dr Menendez) Pure hypercholesterolemia, unspecified (Chronic) Goal LDL <70, Cardiology Shoulder joint pain (Chronic) Hx rt shoulder pain, overuse? Discoloration of skin of foot (Acute) Varicose veins of left lower extremity (Acute) Anxiety (Chronic) Stress due to illness of family member (Acute) Medical History Hx of low back pain annual sensation of muscle spasms .. usually fine Hx of colonic polyps Family history of colon cancer (05/14/13) [place], Fa (+) colon cancer and polyp (+) @ 62yo. Surgical History History of appendectomy Status post coronary artery stent placement H/O colonoscopy (09/13/18) 09/13/18 dr lira, no abnormalities, repeat in five years. Stent placement 08/11/11 (R) RCA STENT; NON STEMI Family History Mother , AGE 86 Breast cancer Colon cancer Father , AGE 45 Colon cancer Sister Heart disease PACEMAKER Breast cancer Social History Smoking/Tobacco Use Status: Never Smoking risk assessment performed?: Yes Alcohol Intake: current Alcohol Intake frequency: a few times a week Alcohol type: wine Drug use: Never Substance use type: does not use Caregiver/Support person: No Household members: significant other Housing: house Communication Needs: None Do you need help understanding health information?: Rarely current occupation: Retired Pets and animals: No Do you think of yourself as: straight/heterosexual Current gender identity: male What is your relationship status?: living with partner How often do you talk on the phone with friends or family?: decline to answer How often do you get together with friends or relatives?: decline to answer How often do you attend orthodox or rastafari services?: decline to answer Do you belong to any clubs or organized social groups?: decline to answer Panel score (0-1 are the most socially isolated patients): 1 What type of physical activity do you participate in: weight lifting and other Details: rowing Duration: 15-30 minutes/day Frequency: 5-6 times per week Sheri/Yazdanism: No preference Special sheri needs: No Seatbelt use: always Drive intox or ride w/intox ups driver: No Meds Allergies and Home Medications Allergies Allergy/AdvReac Type Severity Reaction Status Date / Time No Known Allergies Allergy Verified 08/01/23 07:01 Home Medications Medication Instructions Recorded Confirmed Type aspirin 81 mg chewable tablet 1 tab PO QD 06/17/15 08/01/23 History (Aspirin Low-Strength) nitroglycerin 0.3 mg sublingual 1 tab buccal QD PRN 06/17/15 08/01/23 History tablet (Nitrostat) lorazepam 0.5 mg tablet 0.5 mg PO DAILY PRN anxiety, panic 09/21/22 08/01/23 Rx #30 tabs lisinopril 2.5 mg tablet 2.5 mg PO DAILY #90 tabs 01/30/23 08/01/23 Rx simvastatin 20 mg tablet See Rx Instructions .Route 03/12/23 08/01/23 Rx .COMPLEX #90 tabs Exam Narrative Exam Narrative: Alert and oriented x4 HEENT: Atraumatic normocephalic, pupils equally round reactive to light and accommodation, extraocular motion intact, TMs intact, nares moist and patent without exudate or bleeding, oropharynx noninjected without exudate, teeth in good repair Neck: Supple, nontender, without thyromegaly or lymphadenopathy or JVD. Normal carotid pulses Lungs: Clear to auscultation and percussion Heart: Regular rate and rhythm without murmur rub or gallop. Normal apical impulse Abdomen: Nondistended, normal bowel sounds, nontender to palpation or percussion, no organomegaly, no bruits, no palpable masses Genitalia and rectal exam: Deferred Extremities: Normal range of motion with normal strength. No peripheral cyanosis or edema. Normal pulses. Patient has bilateral varicose veins of his lower legs particularly the left but no evidence of leg edema or calf tenderness or thigh tenderness. Negative Homans. Neurologic: Cranial nerves II through XII grossly within normal limits. Normal strength and sensation over the face trunk and extremities. Results Labs 08/01/23 06:50 08/01/23 06:50 Labs: Laboratory Results - last 24 hr 08/01/23 08/01/23 08/01/23 06:50 06:50 07:10 WBC 4.88 RBC 4.25 L Hgb 14.3 Hct 42.6 MCV 100 H MCH 33.6 H MCHC 33.6 RDW 13.6 Plt Count 143 MPV 9.8 Immature Gran % 0.2 Neutrophils % 60.3 Lymphocytes % 26.2 Monocytes % 9.0 Eosinophils % 3.7 Basophils % 0.6 Nucleated RBC % 0.0 Absolute Neutrophils 2.94 Absolute Lymphocytes 1.28 Absolute Monocytes 0.44 Absolute Eosinophils 0.18 Absolute Basophils 0.03 PT 10.8 INR 1.1 APTT 33.4 H VBG pH 7.41 VBG pCO2 45 VBG pO2 32 VBG HCO3 28 VBG Total CO2 25 VBG O2 Saturation 61 VBG Base Excess 4 H Sodium 139 Potassium 3.6 Chloride 105 Carbon Dioxide 28.0 Anion Gap 6.0 BUN 20 H Creatinine 0.8 Est GFR (CKD-EPI 2020) 92.29 Glucose 99 Calcium 9.0 Total Bilirubin 0.8 AST 14 L ALT 20 Alkaline Phosphatase 83 Troponin I < 50 Total Protein 7.2 Albumin 3.6 TSH 5.67 H Cancelled Free T4 1.08 COVID-19 Source Nasopharynx SARS-CoV-2 (PCR) Negative Influenza Type A (PCR) Negative Influenza Type B (PCR) Negative RSV (PCR) Negative 08/01/23 10:00 WBC RBC Hgb Hct MCV MCH MCHC RDW Plt Count MPV Immature Gran % Neutrophils % Lymphocytes % Monocytes % Eosinophils % Basophils % Nucleated RBC % Absolute Neutrophils Absolute Lymphocytes Absolute Monocytes Absolute Eosinophils Absolute Basophils PT INR APTT VBG pH VBG pCO2 VBG pO2 VBG HCO3 VBG Total CO2 VBG O2 Saturation VBG Base Excess Sodium Potassium Chloride Carbon Dioxide Anion Gap BUN Creatinine Est GFR (CKD-EPI 2020) Glucose Calcium Total Bilirubin AST ALT Alkaline Phosphatase Troponin I < 50 Total Protein Albumin TSH Free T4 COVID-19 Source SARS-CoV-2 (PCR) Influenza Type A (PCR) Influenza Type B (PCR) RSV (PCR) Last Vital Signs Temp 36.1 C L 08/01/23 14:56 Pulse 81 08/01/23 14:56 Resp 16 08/01/23 14:56 BP 120/71 08/01/23 14:56 Pulse Ox 97 08/01/23 14:56 Time Spent Time spent with Patient: 55-74 minutes Time was spent: preparing to see the patient(eg.review tests), obtaining and/or reviewing separately otained hiistory, ordering medications,tests, procedures, referring, communicating with other health progressive care unit registered nurse, indepentently interpreting results, counseling the patient and care coordination
[2023-08-01] MEDS: Apixaban 5 MG TAB 10 MG PO (20:52)
[2023-08-01] MEDS: Simvastatin 20 MG TAB 40 MG PO (20:53)
[2023-08-02 03:59] VITALS: BP 118/64; PULSE 64; RESP 15; TEMP 36.2; O2SAT 95
[2023-08-02] MEDS: Apixaban 5 MG TAB 10 MG PO (07:35)
--- NOTE | 2023-08-02 09:20 | PDOC.CMIN ---
Date of service: 08/02/23 Time of Service: 09:20 Care Management Initial Assmt Initial Assessment REASON FOR HOSPITALIZATION:: Bilateral PE PREVIOUS FUNCTIONAL STATUS/SOCIAL/FAMILY SUPPORTS:: Tony lives in [place] ADVANCE DIRECTIVES:: none on file Has patient been provided with info about the portal/API?: Yes Did the patient sign up for the portal?: Yes CODE STATUS:: Full Code INSURANCE COVERAGE / FINANCIAL ISSUES:: [employer] Medicare Advantage PRIMARY CARE PHYSICIAN:: Lisa Akers POTENTIAL DISCHARGE NEEDS:: follow up with PCP and plan of care PATIENT/FAMILY EDUCATION NEEDS:: Review of discharge instructions, limitations, follow up plan, discuss Ask me Three TRANSPORTATION:: via private vehicle with family PLAN:: Anticipate Tony will be discharged home on a new anticoagulant. He will follow up with his community providers and plan of acre and transport with family. CM will follow and assess for discharge needs. PFSH All Active Problems Pulmonary embolism, bilateral (Acute) Vascular insufficiency of extremity (Acute) Edema (Acute) Bilateral sensorineural hearing loss (Acute) Tinnitus (Acute) CAD (coronary artery disease) (Acute 08/11/11) 01/09/13; [facility]; STRESS TEST;PER DR. GARCIA RECORDS (NSTEMI, 08/2011, [facility], Cardio Dr Menendez) Pure hypercholesterolemia, unspecified (Chronic) Goal LDL <70, Cardiology Shoulder joint pain (Chronic) Hx rt shoulder pain, overuse? Discoloration of skin of foot (Acute) Varicose veins of left lower extremity (Acute) Anxiety (Chronic) Stress due to illness of family member (Acute) Medical History Hx of low back pain annual sensation of muscle spasms .. usually fine Hx of colonic polyps Family history of colon cancer (05/14/13) [place], Fa (+) colon cancer and polyp (+) @ 62yo. Surgical History History of appendectomy Status post coronary artery stent placement H/O colonoscopy (09/13/18) 09/13/18 dr lira, no abnormalities, repeat in five years. Stent placement 08/11/11 (R) RCA STENT; NON STEMI Family History Mother , AGE 86 Breast cancer Colon cancer Father , AGE 45 Colon cancer Sister Heart disease PACEMAKER Breast cancer Social History Smoking/Tobacco Use Status: Never Smoking risk assessment performed?: Yes Alcohol Intake: current Alcohol Intake frequency: a few times a week Alcohol type: wine Drug use: Never Substance use type: does not use Caregiver/Support person: No Household members: significant other Housing: house Communication Needs: None Do you need help understanding health information?: Rarely current occupation: Retired Pets and animals: No Do you think of yourself as: straight/heterosexual Current gender identity: male What is your relationship status?: living with partner How often do you talk on the phone with friends or family?: decline to answer How often do you get together with friends or relatives?: decline to answer How often do you attend jainism or congregation services?: decline to answer Do you belong to any clubs or organized social groups?: decline to answer Panel score (0-1 are the most socially isolated patients): 1 What type of physical activity do you participate in: weight lifting and other Details: rowing Duration: 15-30 minutes/day Frequency: 5-6 times per week Sheri/Protestant: No preference Special sheri needs: No Seatbelt use: always Drive intox or ride w/intox patrol driver: No
--- NOTE | 2023-08-02 10:55 | DSE_ITS ---
Date of service: 08/02/23 Time of Service: 10:55 DS: Diagnosis Discharge Diagnosis (1) Pulmonary embolism, bilateral: Status: Acute Asessment and Plan: patient initially was treated w/ lovenox 80 mg after CTA demonstrated multiple bilateral P.E.'s. Subsequent venous duplex scan demonstrated left femoral DVT. Echocardiogram did not show any right heart strain but demonstrated normal LV and normal RV size and function. Patient was begun on apixaban 10 mg bid x 1 week then he is to decrease to 5 mg bid x 3 months. He needs follow up w/ his PCP for routine cancer surveillance and he needs to see his endoscopist regarding his follow up colonoscopy given his hx of colon polyps (2) Left femoral vein DVT: Status: Acute Discharge Plan Disposition Patient Disposition: Home Condition: Improving Discharge Details Reason For Visit: Multiple pulmonary emboli' Admit Date/Time: 08/01/23 10:11 Admit Provider: Dony Kim Attending Provider: Dony Kim Primary Care Provider: Lisa Akers [facility] Course Hospital Course: 77 yr old male w/ hx of CAD, S/P PCI x 2 stents, approx. 10 yr prior presented w/ acute onset of exertional dyspnea, 3 days prior to admission. Evaluation included serial troponin, EKG, CTA chest and routine labs. He was ruled out for myocardial infarction but was found to have multiple bilateral pulmonary emboli but no evidence of right heart strain. He was not tachycardic, and not hypoxemic or hypotensive on admission. He was begun on lovenox 80 mg SC administered in the ED but subsequently was put on apixaban 10 mg bid beginning on the evening of his admission on 08/01. Subsequent venous duplex scan demonstrated left femoral DVT. Echocardiogram demonstratged normal LV and normal RV size and function. No sign of RV strain. His risk factors for PE/DVT were negative for any prior thromboembolism, and he has no FAMILY hx of the same and he is a lifelong nonsmoker who is very active and has had no recent surgeries nor any long distance travel. However, he has hx of colon polyps and family hx of colon cancer. He was due for follow up colonoscopy this but deferred until October 2023. I explained to him that cancers can increase the risk for DVT and P.E. I advised him to talk w/ his endoscopist about moving up his c-scope and he should follow up w/ his PCP for his routine cancer screenings. He was advised he will need a minimum of 3 months of anticoagulation and if he has to have interruption for a procedure (such as c-scope or follow up dental surgery, note he had recent dental extraction), then he will need bridge therapy w/ lovenox. I nformation on use of apixaban and pulmonary embolism from [employer] were given to the patient. Home Meds and New Rx's Prescriptions: New Eliquis DVT-PE Treat 30D Start 5 mg (74 tabs) tablets,dose pack See Rx Instructions .ROUTE .COMPLEX Qty: 74 0RF Rx Instructions: orally per package directions Continued lorazepam 0.5 mg tablet 0.5 mg PO DAILY PRN (Reason: anxiety, panic) Qty: 30 1RF nitroglycerin [Nitrostat] 0.3 MG tablet, sublingual 1 tab Buccal QD PRN aspirin [Aspirin Low-Strength] 81 MG tablet,chewable 1 tab PO QD lisinopril 2.5 mg tablet 2.5 mg PO DAILY Qty: 90 4RF simvastatin 20 mg tablet See Rx Instructions .ROUTE .COMPLEX Qty: 90 3RF Dose Instruction: TAKE 1 TABLET BY MOUTH AT BEDTIME Rx Instructions: TAKE 1 TABLET BY MOUTH AT BEDTIME Discharge Instructions Instructions: Apixaban (By mouth), Pulmonary Embolism (DC), Deep Vein Thrombosis (DC) Stand Alone Forms: Nursing Discharge Form Referrals: Lisa Akers DO [Primary Care Provider] - 08/11/23 2:00 pm Activity:: Activity as Tolerated Equipment/Supplies:: No Equipment Needed Diet:: Normal Diet Discharge Orders Discharge Orders: Discharge Order (Routine); Ordered 08/02/23 Ordered By: Dony Kim DS: Summary Time Spent with Patient providing and/or coordinating discharge services: Greater than 30 minutes (45 minutes) Specific discharge activities: Interview/exam of patient; review of discharge instructions, completion of prescriptions/discharge instructions; discussion w/ nursing and CM; documentation of hospital visit Status at Discharge Functional status at discharge: independent ambulation Overall status at discharge: patient is progressing back to baseline Mental Status: mental status grossly normal Speech and Movement: speech and movement normal Mood: congruent mood Affect: normal affect Quality: VTE VTE Discharge Instructions: Education about anticoagulant therapy Deep Vein Thrombosis/Pulmonary Embolism Present on Admission: Yes Exam Narrative Exam Narrative: Tony is alert, oriented, talking w/ his step daughter. 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 Psych Mental Status: mental status grossly normal Speech and Movement: speech and movement normal Mood: congruent mood Affect: normal affect DS: Data Vitals/I&O Vitals and I&O: Vital Signs Temperature 36.2 C L 08/02/23 03:59 Temperature Source Tympanic 08/02/23 03:59 Pulse 64 08/02/23 03:59 Pulse Rhythm Regular 08/02/23 08:08 Pulse 75 08/01/23 09:50 Respiratory Rate 15 08/02/23 03:59 Respiratory Effort Normal, Non-Labored 08/02/23 08:08 Respiratory Depth Normal 08/02/23 08:08 Respiratory Pattern Normal 08/02/23 08:08 Blood Pressure 118/64 08/02/23 03:59 Blood Pressure Mean 102 08/01/23 07:01 Blood Pressure Position Supine 08/01/23 06:39 Pulse Oximetry 95 08/02/23 03:59 Oxygen Delivery Method Room Air 08/02/23 03:59 Oxygen Flow Rate 0 08/02/23 03:59 Pain Level 0 08/02/23 03:59 Intake & Output 08/01/23 08/01/23 08/02/23 11:59 23:59 11:59 Intake Total 50 / 50 Balance 50 / 50 Weight 75.296 kg 76 kg Intake: Oral 50 / 50 Other: Urine Appearance Clear Comment pT stated that he has used the restroom once. Voiding Methods Toilet PFSH All Active Problems Left femoral vein DVT (Acute) Pulmonary embolism, bilateral (Acute) Vascular insufficiency of extremity (Acute) Edema (Acute) Bilateral sensorineural hearing loss (Acute) Tinnitus (Acute) CAD (coronary artery disease) (Acute 08/11/11) 01/09/13; [facility]; STRESS TEST;PER DR. GARCIA RECORDS (NSTEMI, 08/2011, [facility], Cardio Dr Menendez) Pure hypercholesterolemia, unspecified (Chronic) Goal LDL <70, Cardiology Shoulder joint pain (Chronic) Hx rt shoulder pain, overuse? Discoloration of skin of foot (Acute) Varicose veins of left lower extremity (Acute) Anxiety (Chronic) Stress due to illness of family member (Acute) Medical History Hx of low back pain annual sensation of muscle spasms .. usually fine Hx of colonic polyps Family history of colon cancer (05/14/13) Mo, Fa (+) colon cancer and polyp (+) @ 60yo. Surgical History History of appendectomy Status post coronary artery stent placement H/O colonoscopy (09/13/18) 09/13/18 dr lira, no abnormalities, repeat in five years. Stent placement 08/11/11 (R) RCA STENT; NON STEMI Family History Mother , AGE 86 Breast cancer Colon cancer Father , AGE 45 Colon cancer Sister Heart disease PACEMAKER Breast cancer Social History Smoking/Tobacco Use Status: Never Smoking risk assessment performed?: Yes Alcohol Intake: current Alcohol Intake frequency: a few times a week Alcohol type: wine Drug use: Never Substance use type: does not use Caregiver/Support person: No Household members: significant other Housing: house Communication Needs: None Do you need help understanding health information?: Rarely current occupation: Retired Pets and animals: No Do you think of yourself as: straight/heterosexual Current gender identity: male What is your relationship status?: living with partner How often do you talk on the phone with friends or family?: decline to answer How often do you get together with friends or relatives?: decline to answer How often do you attend congregation or jain services?: decline to answer Do you belong to any clubs or organized social groups?: decline to answer Panel score (0-1 are the most socially isolated patients): 1 What type of physical activity do you participate in: weight lifting and other Details: rowing Duration: 15-30 minutes/day Frequency: 5-6 times per week Sheri/Scientology: No preference Special sheri needs: No Seatbelt use: always Drive intox or ride w/intox city driver: No Time Spent with Patient Time Spent with Patient: 45-69 minutes Time was spent: preparing to see the patient(eg.review tests), ordering medications,tests, procedures, referring, communicating with other health manager respiratory care, indepentently interpreting results, counseling the patient and care coordination
--- NOTE | 2023-08-02 11:44 | DI.US_ITS ---
APPROVED REPORT EXAM: Comprehensive 2D, Doppler, and color-flow Echocardiogram Patient Location: In-Patient Room/Bed: [address] Taxi Cab Driver: Héctor Patricia RDCS (AE) Indications: pulmonary embolism, r/o RV strain Conclusion Normal left ventricular wall thickness and chamber size. Ejection fraction is 65%. Wall motion is n ormal Normal right ventricular size and systolic function Both atria are normal in size. The atrial septum is thin and hypermobile Aortic valve is trileaflet and mildly sclerotic with trace regurgitation Normal mitral valve with mild regurgitation Estimated right ventricular systolic pressure is 36 mmHg Wall motion Left Ventricle The left ventricle is normal size. The left ventricular systolic function is normal. The left ventric ular ejection fraction is within the normal range. There is normal left ventricular wall thickness. T here is normal LV segmental wall motion. There is no ventricular septal defect visualized. LVEF is 65 %. Right Ventricle The right ventricle is normal size. The right ventricular systolic function is normal. The RVSP is 35 .6 mmHg. Atria The left atrium size is normal. The right atrium size is normal. The interatrial septum is intact wit h no evidence for an atrial septal defect. Atrial septal aneurysm is present. Aortic Valve The Aortic valve is mildly sclerotic. Aortic valve is trileaflet. There is no aortic valvular stenosi s. Trace aortic regurgitation. Mitral Valve The mitral valve is normal in structure. No evidence of mitral valve stenosis. Mild mitral regurgitat ion. Tricuspid Valve The tricuspid valve is normal in structure. There is no tricuspid valve stenosis. Mild tricuspid regu rgitation. Pulmonic Valve The pulmonary valve is normal in structure. There is no pulmonic valvular stenosis. Trace pulmonic re gurgitation. Great Vessels The aortic root is normal in size. The ascending aorta is normal in size. Aortic arch is not well vis ualized. IVC is normal in size and collapses >50% with inspiration. Pericardium There is no pericardial effusion. 2D Dimensions IVSD d PLAX 0.95 cm M: 0.6-1.2 Ao Root d 3.73 cm M: 3.1 - 3.7 LVPW d PLAX 0.83 cm M: 0.6 - 1.2 Ao Asc Diam d 3.41 cm M: 2.6 - 3.4 LVID d PLAX 5.03 cm M: 4.2 - 5.8 LVDs 3.22 cm M: 2.5 - 4.0 LV EF Teichholz 65.2 % FS 35.90 % LV EDV (Teich) 119.8 mL LV ESV (Teich) 41.7 mL Stroke Vol Index (Teich) 39.66 M-Mode TAPSE 2.58 cm (M/F) >1.7 Auto EF LV EDV A4C 100.1 mL LV EDV A2C 80.6 mL LV EDV BP 90.6 mL LV ESV A4C 36.3 mL LV ESV A2C 28.2 mL LV ESV BP 31.8 mL LVEF(%) A4C 63.7 % LVEF(%) A2C 65.0 % LVEF(%) BP 64.9 % LV SV A4C 63.7 ml LV SV A2C 52.4 ml LV SV BP 58.8 ml LV CO A4C 5.3 L/min LV CO A2C 4.3 L/min LV CO BP 4.8 L/min HR A4C 83.88 BPM HR A2C 82.54 BPM LV EDV Index (BP) LA Volume LA Length A4C 4.6 cm LA Length A2C LA Area A4C s 10.24 cm2 LA Area A2C s LA Vol A4C A-L 19.17 mL LA Vol A2C A-L LA Vol Biplane A-L LA Vol A4C MOD 18.4 mL LA Vol A2C MOD LA Vol BP MOD RA Volume RA Area A4C 15.3 cm2 RA ESV A4C (A-L) 36.8mL RA Vol/BSA A4C A-L RA Length A4C 5.4 cm RA ESV A4C (MOD) 35.4mL LV Diastology MV E' medial 0.110 (>0.07 m/s) MV E Vmax 0.51 (0.4-1.3 m/s) MV E/E' MED 4.66 (<14) MV A Vmax 0.80 (0.4-1.3 m/s) MV E' lateral 0.123 (>0.1 m/s) E/A Ratio 0.6 MV E/E' LAT 4.16 (<14) MV E' Average 0.117 m/s MV E/E'(average) 4.40 Aortic Valve LVOT Vmax 1.05 m/s LVOT Peak Grad 4.4 mmHg LVOT VTI 0.205 m LVOT Mean Grad 2.1 mmHg LVOT SV 74.73 mL LVOT Diam s 2.15 cm Mitral Valve MV DT 120 (160-240 msec) Pulmonary Valve PV Vmax 1.00 (0.5-1.5 m/s) RVOT Vmax 0.66 m/s PV Peak Grad 4.0 mmHg RVOT Peak Gr. 1.7 mmHg PV Mean Naren 0.67 m/s RVOT VTI 0.134 m PV Mean Grad 2.0 mmHg RVOT Mean Gr. 0.8 mmHg Tricuspid Valve RA Pressure 3.00 mmHg TR Vmax 2.86 m/s TR Peak Grad 32.6 mmHg RVSP (TR) 35.6 mmHg
--- NOTE | 2023-08-02 13:21 | CMPROGNOTE_ITS ---
Date of service: 08/02/23 Time of Service: 13:21 Care Management Progress Note Progress Note Text Progress Note Text: Tony was dressed and ready for discharge when CM went to see him. He has a new prescription for Eliquis. CM contacted his pharmacy and learned that his co- pay would be $185./month. CM faxed a coupon from the project reservoir engineer for a free month trail, to offset the expense. Tony will follow up with his PCP and plan of care and transport with a friend. He denied the need for any other services.
== END 2023-08-02 13:14 | disposition home or self-care (01) ==
LOC: ER 11:27 → MS 11:55
PROVIDERS: Student in an Organized Health Care Education/Training Program; Admitting Provider Internal Medicine; Emergency Provider Student in an Organized Health Care Education/Training Program; PCP Student in an Organized Health Care Education/Training Program; Visit Provider Internal Medicine
DX: I26.99 Other pulmonary embolism without acute cor pulmonale (principal); I82.412 Acute embolism and thrombosis of left femoral vein; Z80.0 Family history of malignant neoplasm of digestive organs; F41.9 Anxiety disorder, unspecified; Z86.010 Personal history of colon polyps; I25.10 Atherosclerotic heart disease of native coronary artery without angina pectoris; Z95.5 Presence of coronary angioplasty implant and graft; I25.2 Old myocardial infarction; D75.89 Other specified diseases of blood and blood-forming organs; I87.2 Venous insufficiency (chronic) (peripheral); E78.00 Pure hypercholesterolemia, unspecified; I83.92 Asymptomatic varicose veins of left lower extremity; M25.511 Pain in right shoulder; H90.3 Sensorineural hearing loss, bilateral; R60.0 Localized edema
CPT/HCPCS: 00123; 36415; 71275; 80053; 82805; 87637; 93005; 93306; 96372; 99285; 84439; 84443; 84484; 85025; 85610; 85730; 93010; 93970; 99222; 99239; G0378; J1650

== ENCOUNTER 2023-08-24 03:03 | Outpatient (CLI) | payer MEDICARE, SELFPAY ==
[2023-08-24 08:50] LABS: Abs Immature Grans 0.01 10^3/uL (0.0-0.06); Absolute Basophil Count 0.03 10^3/uL (0.0-0.2); Absolute Eosinophil Count 0.16 10^3/uL (0.0-0.7); Absolute Lymphocyte Count 1.22 10^3/uL (1.2-3.4); Absolute Monocyte Count 0.27 10^3/uL (0.1-0.8); Absolute Neutrophil Count 1.62 10^3/uL (1.2-6.7); Basophils % 0.9; Eosinophils % 4.8; HCT 44.5 % (40.0-50.0); HGB 14.8 g/dL (13.5-17.5); Immature Grans % 0.3; Lymphocytes % 36.9; MCH 33.7 pg (27.0-33.0); MCHC 33.3 % (32.0-36.0); MCV 101 fL (80-95); Monocytes % 8.2; Neutrophils % 48.9; Platelet Count 154 10^3/uL (130-400); RBC 4.39 10^6/uL (4.36-5.78); RDW 13.2 % (11.8-14.1); RDW-SD 49.9 fL; WBC 3.31 10^3/uL (4.4-10.8)
[2023-08-24 09:28] LABS: ALT 20 U/L (16-63); AST 15 U/L (15-37); Albumin 3.8 g/dL (3.4-5.0); Alkaline Phosphatase 77 U/L (46-116); Anion Gap 5.7 mmol/L (3-11); BUN 15 mg/dL (7-18); Bilirubin, Total 0.7 mg/dL (0.2-1.0); CO2 30.3 mmol/L (21.0-32.0); CREATININE 0.8 mg/dL (0.70-1.30); Calcium 8.8 mg/dL (8.5-10.1); Calculated LDL 72 mg/dL (<100); Chloride 107 mmol/L (98-107); Cholesterol 142 mg/dL (<200); Estimated GFR 91.72 (mL/min/1.73m2); Glucose 96 mg/dL (74-106); HDL Cholesterol 56 mg/dL (40-60); Potassium 4.7 mmol/L (3.5-5.1); Sodium 143 mmol/L (136-145); Total Protein 7.2 g/dL (6.4-8.2); Triglyceride 73 mg/dL (<150)
[2023-08-24 09:40] LABS: Iron 111 ug/dL (65-175)
[2023-08-24 10:04] LABS: Vitamin D 25 Total 24.3 ng/mL (30-100)
[2023-08-25 10:02] LABS: Lyme Ab w Rflx to Lyme Confirm Negative (Negative)
[2023-08-26 19:31] LABS: Anaplasma phagocytophilum Negative (Negative); B. miyamotoi PCR Negative (Negative); Babesia divergens/MO-1 Negative (Negative); Babesia duncani Negative (Negative); Babesia microti Negative (Negative); Ehrlichia chaffeensis Negative (Negative); Ehrlichia ewingii/canis Negative (Negative); Ehrlichia muris eauclairensis Negative (Negative)
== END 2023-08-24 03:04 | disposition home or self-care (01) ==
LOC: LBO 03:03
PROVIDERS: Absent Provider Student in an Organized Health Care Education/Training Program; PCP Student in an Organized Health Care Education/Training Program; Visit Provider Student in an Organized Health Care Education/Training Program
DX: Z00.00 Encounter for general adult medical examination without abnormal findings; N28.9 Disorder of kidney and ureter, unspecified; R60.9 Edema, unspecified; W57.XXXA Bitten or stung by nonvenomous insect and other nonvenomous arthropods, initial encounter; D64.9 Anemia, unspecified; E46 Unspecified protein-calorie malnutrition
CPT/HCPCS: 36415; 80053; 80061; 82306; 87798; 83540; 85025; 86618

== ENCOUNTER → 2024-01-25 12:51 | Outpatient (BNVA) | payer MEDICARE, SELFPAY | PROVIDERS: PCP Student in an Organized Health Care Education/Training Program; Referring Provider Student in an Organized Health Care Education/Training Program; Visit Provider Surgery | DX: Z12.11 Encounter for screening for malignant neoplasm of colon (principal); Z80.0 Family history of malignant neoplasm of digestive organs ==

== ENCOUNTER 2024-02-09 07:33 | Day surgery (SDC) | payer MEDICARE, SELFPAY ==
--- NOTE | 2024-02-08 21:14 | W.PM.DSUDISC ---
Date of service: 02/09/24 Time of Service: 10:23 Discharge Plan Disposition Patient Disposition: Home Condition: Good Discharge Details Reason For Visit: screening colonoscopy Attending Provider: Thomas Carrillo Primary Care Provider: Lisa Akers Home Meds and New Rx's Prescriptions: Continued lorazepam 0.5 mg tablet 0.5 mg PO DAILY PRN (Reason: anxiety, panic) Qty: 30 1RF nitroglycerin [Nitrostat] 0.3 MG tablet, sublingual 1 tab Buccal QD PRN aspirin [Aspirin Low-Strength] 81 MG tablet,chewable 1 tab PO QD lisinopril 2.5 mg tablet 2.5 mg PO DAILY Qty: 90 4RF cholecalciferol (vitamin D3) 125 mcg (5,000 unit) capsule 125 mcg PO DAILY Qty: 90 3RF simvastatin 20 mg tablet See Rx Instructions .ROUTE .COMPLEX Qty: 90 3RF Dose Instruction: TAKE 1 TABLET BY MOUTH AT BEDTIME Rx Instructions: TAKE 1 TABLET BY MOUTH AT BEDTIME Held Xarelto 20 mg tablet 20 mg PO DAILY Qty: 90 3RF Hold Instructions: Resume on 02/10/24. Rx Instructions: Increase after 21 days on 15mg BID; TAKE WITH FOOD (evening meal sugg) Discontinued bisacodyl [Dulcolax (bisacodyl)] 5 mg tablet,delayed release (DR/EC) 5 mg PO ONCE Qty: 4 0RF polyethylene glycol 3350 17 gram/dose powder 17 g PO DAILY Qty: 238 0RF Discharge Instructions Additional Instructions: Tony, we were able to complete your colonoscopy today without any difficulty. Your prep was excellent. I did see some mildly abnormal appearing tissue in an area of the previous polyp. I suspect this is just simple scar tissue, but I did remove that abnormality today, and I will have it sent off for testing to be certain. 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 This is an abnormal growth of blood vessels. They are quite common, and do not pose any risk for cancer. However, they can bleed, and because of the fact that you take a strong blood thinning medications, I did treat this today. I use some electricity to burn the blood vessels, and placed a titanium clip across it to help minimize any bleeding. The timing of your next colonoscopy will depend a little bit on the results of the polyps that were removed. Once I have those results, I will be in touch. At the very longest, I would recommend 5 years based on your family history. If you have any questions in the meantime, please do not hesitate to call or ask at any point. 1. If tolerated, consume a soft, low fiber diet for 1-2 days. 2[address] Do not drive, drink alcohol, operate machinery, make critical decisions, or do activities that require coordination or balance for 24 hours. 3. Because air was put into your colon during the procedure, expelling air from your rectum (passing gas or farting) is normal. 4. You may not have a bowel movement for 1-3 days because of the colonoscopy prep. This is normal. 5. Go directly to the emergency room if you notice any of the following: Develop chills (warm to touch), or if you have a thermometer and your temperature is above 101 Difficulty breathing or difficultly swallowing Persistent vomiting Severe abdominal pain, other than gas cramps Severe chest pain Black, tarry stools Any bleeding ? exceeding one tablespoon 6. Call your physician if the site where your intravenous was started becomes red, swollen, painful, and warm to touch. 7. Your physician has reviewed your pre-procedure medications. Please continue to take those medications as previously ordered. You will be given specific information/education regarding any changes to your medications before leaving. Activity:: Activity as Tolerated Diet:: As Tolerated Discharge Orders Discharge Orders: Discharge Order (Routine); Ordered 02/08/24 Ordered By: Thomas Carrillo DS: Diagnosis Discharge Diagnosis (1) Encounter for screening colonoscopy: Status: Acute Asessment and Plan: Follow-up on polyp results
--- NOTE | 2024-02-08 21:18 | COLE_ITS ---
Date of service: 02/09/24 Time of Service: 10:26 Colonoscopy Report Date of procedure: 02/09/24 Pre-op diagnosis general: screening colonoscopy Post-op diagnosis procedure note: other (Vascular ectasia of the ascending colon, 0.25 cm polyp at 65 cm from the anus) Procedure: colonoscopy with polypectomy, and cauterization and clipping of vascular ectasia Surgeon: Thomas Carrillo Anesthesia Type: General:No Airway Estimated blood loss (mL): 5 Pathology: other (0.25 cm colon polyp at 65 cm from the anus) Complications: None Disposition: same day Indications: Tony is a 78 year old man with a family history of colon cancer who needs his next screening colonoscopy. Prep: Miralax/Dulcolax Procedure Start Time: 10:00 Procedure End Time: 10:20 Retraction Time: 12 Findings: 0.75 cm vascular ectasia in the ascending colon, 0.5 cm flat polyp at 65 cm in area of previous tattoo. Procedure Description: After the induction of monitored anesthetic care, and with the patient in left lateral decubitus position, I began by performing an external anorectal exam.? Perineum and skin were normal, as was the anal verge.? There was no evidence of external hemorrhoids.? Next, I performed a digital rectal exam.? I did not appreciate any abnormal findings.? Next, I advanced a colonoscope into the rectal vault.? I performed retroflexion.? This was normal.? Using insufflation, I then advanced the colonoscope beyond the rectal folds and into the sigmoid colon before advancing towards the cecum.? The scope was noted to be in the cecum by identification of the ileocecal valve and appendiceal orifice.? I then began withdrawing the colonoscope using repeated irrigation as necessary for full evaluation of the colonic mucosa. In the distal portion of the ascending colon, just proximal to the hepatic flexure was a 0.75 cm vascular ectasia. Narrowband imaging was used to assess with analysis. Superficial most mucosa appeared quite thin, and there was some suggestion of recent bleeding. Furthermore, the patient takes therapeutic anticoagulation for atrial fibrillation. Therefore, using energized forceps, I cauterized the base of the lesion, and used a resolution 360 clip to help maximize hemostasis. There was no significant bleeding during the procedure. I continued withdrawing the scope up to the level of a previous colonoscopic tattoo. Again narrowband imaging was used to examine it. There was a 0.25 cm focus of increased vascularity, so cold forceps were used to remove this. There was minimal bleeding. Once the scope was withdrawn to the level of the rectum, great care was taken to examine portions of the rectal folds.? Finally, the scope was withdrawn and the patient was brought to the same-day surgery recovery unit as the anesthetic wore off. ?The findings and instructions were shared with the patient prior to discharge. [place] Bowel Prep [place] Bowel Prep Right Colon: 3 Left Colon: 3 Transverse Colon: 3 Total Score: 9
[2024-02-09 07:59] VITALS: BP 121/83; PULSE 70; RESP 16; TEMP 36.5; O2SAT 99
[2024-02-09] MEDS: Lactated Ringers 1,000 ML 80 ML IV (08:05)
--- NOTE | 2024-02-09 08:24 | W.ANESPRE ---
General Info Date of Service Date Performed: 02/09/24 Height: 5 ft 10.5 in Weight: 76.8 kg Body Mass Index (BMI): 23.9 Surgical Procedure: Operation Date: 02/09/24 09:20 Proposed Procedure Side Surgeon laila Carrillo MD Meds Allergies and Home Medications Allergies Allergy/AdvReac Type Severity Reaction Status Date / Time No Known Allergies Allergy Verified 02/09/24 07:49 Home Medication Medication Instructions Recorded aspirin 81 mg chewable tablet 1 tab PO QD 06/17/15 (Aspirin Low-Strength) nitroglycerin 0.3 mg sublingual 1 tab buccal QD PRN 06/17/15 tablet (Nitrostat) lorazepam 0.5 mg tablet 0.5 mg PO DAILY PRN anxiety, panic 09/21/22 #30 tabs lisinopril 2.5 mg tablet 2.5 mg PO DAILY #90 tabs 01/30/23 rivaroxaban 20 mg tablet (Xarelto) 20 mg PO DAILY Hx DVT, PE (Heme 09/05/23 eval TBD) #90 tabs cholecalciferol (vitamin D3) 125 125 mcg PO DAILY #90 caps 11/07/23 mcg (5,000 unit) capsule simvastatin 20 mg tablet See Rx Instructions .Route 02/03/24 .COMPLEX #90 tabs Current Visit Medications: Current Medications Generic Name Dose Route Start Last Admin Trade Name Freq PRN Reason Stop Dose Admin Hyoscyamine Sulfate 0.125 mg 02/08/24 21:17 Hyoscyamine 0.125 Mg Sl/Oral/Chew SL 03/09/24 21:16 DIRECTED PRN Ringer's Solution 1,000 mls @ 80 mls/hr 02/09/24 06:00 02/09/24 08:05 IV 03/09/24 23:59 80 mls/hr INFUSION CORINA Administration IV Miscellaneous Supplies 1 each 02/09/24 06:00 Iv Access IV 03/09/24 23:59 DIRECTED CORINA Ondansetron HCl 4 mg 02/08/24 21:17 Ondansetron 4 Mg/2 Ml Vial IVP 03/09/24 21:16 Q4H PRN PRN Nausea / Vomiting Sodium Chloride 0 ml 02/09/24 06:00 Normal Saline Flush 10 Ml Syr IV 03/09/24 23:59 PRN PRN Sodium Chloride 0 ml 02/09/24 06:00 Normal Saline 10 Ml Vial IJ 03/09/24 23:59 DIRECTED PRN Sterile Water 0 ml 02/09/24 06:00 Water,Injection,Sterile 10 Ml Vial IJ 03/09/24 23:59 DIRECTED PRN PFSH Active Problems Active Problems: Problem Status Onset Code Encounter for screening colonoscopy Z12.11 Screening due Z13.9 Left femoral vein DVT I82.412 Pulmonary embolism, bilateral I26.99 Vascular insufficiency of extremity I99.8 Edema R60.9 Bilateral sensorineural hearing loss H90.3 Tinnitus H93.19 Pure hypercholesterolemia, unspecified E78.00 Shoulder joint pain M25.519 Discoloration of skin of foot L81.9 Varicose veins of left lower extremity I83.92 Anxiety F41.9 Stress due to illness of family member Z63.79 CAD (coronary artery disease) 08/11/11 I25.10 Medical History Medical History Hx of low back pain annual sensation of muscle spasms .. usually fine Hx of colonic polyps Family history of colon cancer (05/14/13) Mo, Fa (+) colon cancer and polyp (+) @ 62yo. Surgical History Surgical History History of appendectomy Status post coronary artery stent placement 2010 H/O colonoscopy (09/13/18) 09/13/18 dr lira, no abnormalities, repeat in five years. Stent placement 08/11/11 (R) RCA STENT; NON STEMI Tobacco Smoking/Tobacco Use Status: Never Alcohol Alcohol Intake: current Alcohol intake frequency: a few times a month Alcohol type: wine Substance Use Substance use: Never Substance use type: does not use Vital Signs and Lab Results Vital Signs Most Recent Vital Signs in EMR: Most Recent Vital Signs Temp Pulse Resp BP Pulse Ox 36.5 C 70 16 121/83 99 02/09/24 07:59 02/09/24 07:59 02/09/24 07:59 02/09/24 07:59 02/09/24 07:59 Lab Results Blood Type / Crossmatch: No Data to Display Complete Blood Count: No Data to Display Complete Metabolic Panel: No Data to Display Liver Function Panel: No Data to Display Coagulation Panel: No Data to Display Cardiac Panel: No Data to Display Arterial Blood Gas: No Data to Display Venous Blood Gas: No Data to Display Pancreas Panel: No Data to Display Thyroid Panel: No Data to Display Infectious Disease: No Data to Display Blood Cultures: No Data to Display Toxicology Panel: No Data to Display Imaging and Studies Imaging and Studies Study information below may be from another EMR and interpreted by another provider. Please see original notes in EMR for more complete details. EKG Summary: EKG PATIENT NAME: Tony Griffin UNIT #: [id number] ORDERING PROVIDER: Antonio Barillas DO PRIMARY CARE PROVIDER: LISA AKERS DO DATE/TIME OF SERVICE: 08/01/2345 : 1945 PERFORMING LOCATION: ER APPROVED REPORT Exam: Resting ECG Reason for Exam: SOB Patient Location: E HR:81 bpm ECG Measurements Heart Rate 81 AXIS VA 160 P 53 QRSd 98 QRS 32 QT 393 T49 QTc 457 Conclusion Sinus rhythm...normal P axis, V-rate 60- 99 Inferior infarct, old...Q >35mS, II III aVF Physician: no stemi, q wave in III and AVF <Electronically signed by ANTONIO BARILLAS DO in OV> E-Sign Date: 08/01/23 E-Sign Time: 702 ADDENDUM APPROVED REPORT Exam: Resting ECG Reason for Exam: SOB Patient Location: E HR:81 bpm ECG Measurements Heart Rate 81 AXIS VA 160 P 53 QRSd 98 QRS 32 QT 393 T49 QTc 457 Conclusion Sinus rhythm...normal P axis, V-rate 60- 99 Inferior infarct, old...Q >35mS, II III aVF Physician: no stemi, q wave in III and AVF I have reviewed and I agree with the emergency room physician's ECG interpretation. Electronically signed by: <Electronically signed by Kathya Louis M.D. in OV> 08/01/23 0813 Cosigned by: Stress Test Summary: Patient Name: TONY GRIFFIN Unit #: [id number] Loc: Ordering Provider: Kenan Blair M.D. Status: REG I Primary Care Provider: Kenan Blair M.D. Date of Exam: 12/12/17 Sex: M : 1945 Age: 72 Exam(s) [id number] NM:MPI Resting & Stress GRP *[facility]* *[facility]* [address] [place] [address] Myocardial Perfusion Imaging - SPECT Zan protocol Date of study: 12/12/2017 *PATIENT PRESENTATION* Height: 182.9cm (72in) Blood Pressure: Weight: 79.5kg (175lb) BSA: 2.01m^2 Referring physician: Valencia Remy MD Ordering physician: Kenan Blair Impressions: Normal perfusion by Tc99m Sestamibi Imaging. Summary: 1. Myocardial perfusion imaging: No myocardial perfusion defects noted. 2. The calculated left ventricular ejection fraction after stress: 58%. No left ventricular regional motion abnormality. 3. Stress ECG conclusions: Padilla treadmill score: 9. This score predicts a low risk of cardiac events. 4. Stress: The target heart rate was achieved. Indication: R07.9. History: REASON FOR VISIT: SHORTNESS OF BREATH AND CHEST TIGHTNESS 2 WEEKS AGO WHILE EXERCISING. PT REPORTS A HISTORY OF 2 CARDIAC STENTS. PT HAD A NON STEMI ON 08/11/11 WITH AN RCA STENT. Risk factors: Hypertension. Dyslipidemia. Cholesterol: 157mg/dl. HDL: 64mg/dl. LDL: 76mg/dl. Triglycerides: 51mg/dl. ALLERGIES: NO KNOWN ALLERGIES. MEDICATIONS: ASPIRIN 81 MG DAILY. LISINOPRIL 2.5 MG DAILY. LORAZEPAM 0.5 MG DAILY PRN. NITROGLYCERIN 0.3 MG BUCCAL NEEDED. SIMVASTATIN 20 MG DAILY. Imaging Technique: Protocol: Zan protocol. Acquisition: Gated SPECT; 1 day - rest/stress. The patient was imaged in the supine position. Attenuation correction used. Isotope administration: - Rest. Tc[99m]-sestamibi. Dose: 10.8mCi. Injection time: 09:28 AM. Injection to stress time: 00:45. - Stress. Tc[99m]-sestamibi. Dose: 32.6mCi. Injection time: 11:05 AM. 1-2 min before end of exercise Baseline ECG: SINUS RHYTHM. MINIMAL ST ELEVATION IN INFERIOR LEADS. HR 66 BPM. Stress protocol: + +---+ + !Stage !HR !BP (mmHg) ! + +---+ + !Baseline supine !66 !140/80 (100)! + +---+ + !Baseline standing !87 !138/84 (102)! + +---+ + !Stage I; 1.7mph, 10degrees; 3 min !104!148/80 (103)! + +---+ + !Stage II; 2.5mph, 12degrees; 3 min !125!156/78 (104)! + +---+ + !Stage III; 3.4mph, 14degrees; 3 min!152!168/76 (107)! + +---+ + !Recovery; 3 min !106!148/72 (97) ! + +---+ + !Recovery; 6 min !94 !138/72 (94) ! + +---+ + * Stress results: Maximal heart rate during stress was 154bpm (103% of maximal predicted heart rate). The maximal predicted heart rate was 150bpm. The target heart rate was achieved. The rate-pressure product for the peak heart rate and blood pressure was 92757qf Hg/min. Stress ECG: STRESS TEST ENDED IN 9 MINUTES BECAUSE OF PATIENT FATIGUE. NORMAL HEART RATE AND NORMAL BLOOD PRESSURE RESPONSE TO EXERCISE. FREQUENT PACs AND OCCASIONAL PVCs THROUGHOUT TESTING. APPROXIMATE METS ACHIEVED = 10.[address] ELEVATION AT BASELINE IN THE INFERIOR LEADS. NO SIGNIFICANT ST SEGMENT CHANGES DURING TESTING. ABOVE AVERAGE FUNCTIONAL CAPACITY FOR EXERCISE. Padilla treadmill score: 9. This score predicts a low risk of cardiac events. Myocardial perfusion: Imaging information: gated. No myocardial perfusion defects noted. Ventricular Function (Wall Motion): The calculated left ventricular ejection fraction after stress: 58%. No left ventricular regional motion abnormality. Study data: Valencia Remy MD supervised and was readily available during the procedure. This study was interpreted by [facility]. Study status: Routine. Consent: The risks, benefits, and alternatives to the procedure were explained to the patient and informed consent was obtained. Procedure: Initial setup. A baseline ECG was recorded. Surface ECG leads and manual cuff blood pressure measurements were monitored. Heart sounds: Normal. Lung sounds: Normal. Treadmill exercise testing was performed using the Zan protocol. Study completion: All catheters inserted during the procedure were removed. The patient tolerated the procedure well and was discharged from the lab. Discharge: The patient left the laboratory in stable condition. Birthdate: Patient birthdate: 1945. Sex: Gender: male. Study date: Study date: 12/12/2017. Study time: 06:55 AM. Electronically signed by Valencia Remy MD 12/12/2017 17:42 Ordering provider: Kenan Blair M.D. CC: VALENCIA REMY MD Dictated by: Andrew Carrillo M.D.12/12/17 0655 <Electronically signed by Andrew Carrillo M.D.>12/13/17 1555 Disclaimer: The [facility] radiologist is signing only the Nuclear Medicine MPI Imaging exam portion of the report. Transcribed by: Nicolás Valdez12/13/17 6154 This is privileged, confidential information intended only for the provider named. Any use or distribution by any person other than this provider is strictly prohibited. If you receive this report in error, please notify us immediately at [phone] and return the original report to us at the address above. Thank-you. Echocardiogram Summary: Patient Name: Tony Griffin Unit #: [id number] Loc: [place] Ordering Provider: Dony Kim M.D. Status: ADM IN Primary Care Provider: Lisa Akers DO Date of Exam: 08/02/23 Sex: M Admission Date: 08/01/23 : 1945 Age: 77 APPROVED REPORT EXAM: Comprehensive 2D, Doppler, and color-flow Echocardiogram Patient Location: In-Patient Room/Bed: [facility] Worker: Héctor Patricia RDCS (AE) Indications: pulmonary embolism, r/o RV strain Conclusion Normal left ventricular wall thickness and chamber size. Ejection fraction is 65%. Wall motion is normal Normal right ventricular size and systolic function Both atria are normal in size. The atrial septum is thin and hypermobile Aortic valve is trileaflet and mildly sclerotic with trace regurgitation Normal mitral valve with mild regurgitation Estimated right ventricular systolic pressure is 36 mmHg Wall motion Left Ventricle The left ventricle is normal size. The left ventricular systolic function is normal. The left ventricular ejection fraction is within the normal range. There is normal left ventricular wall thickness. There is normal LV segmental wall motion. There is no ventricular septal defect visualized. LVEF is 65%. Right Ventricle The right ventricle is normal size. The right ventricular systolic function is normal. The RVSP is 35.6 mmHg. Atria The left atrium size is normal. The right atrium size is normal. The interatrial septum is intact with no evidence for an atrial septal defect. Atrial septal aneurysm is present. Aortic Valve The Aortic valve is mildly sclerotic. Aortic valve is trileaflet. There is no aortic valvular stenosis. Trace aortic regurgitation. Mitral Valve The mitral valve is normal in structure. No evidence of mitral valve stenosis. Mild mitral regurgitation. Tricuspid Valve The tricuspid valve is normal in structure. There is no tricuspid valve stenosis. Mild tricuspid regurgitation. Pulmonic Valve The pulmonary valve is normal in structure. There is no pulmonic valvular stenosis. Trace pulmonic regurgitation. Great Vessels The aortic root is normal in size. The ascending aorta is normal in size. Aortic arch is not well visualized. IVC is normal in size and collapses >50% with inspiration. Pericardium There is no pericardial effusion. 2D Dimensions IVSD d PLAX 0.95 cm M: 0.6-1.2Ao Root d 3.73 cm M: 3.1 - 3.7 LVPW d PLAX 0.83 cm M: 0.6 - 1.2Ao Asc Diam d 3.41 cm M: 2.6 - 3.4 LVID d PLAX 5.03 cm M: 4.2 - 5.8 LVDs 3.22 cm M: 2.5 - 4.0 LV EF Teichholz 65.2 % FS35.90 % LV EDV (Teich)119.8 mL LV ESV (Teich)41.7 mL Stroke Vol Index (Teich)39.66 M-Mode TAPSE 2.58 cm (M/F) >1.7 Auto EF LV EDV I3U092.1 mLLV EDV A2C80.6 mLLV EDV BP90.6 mL LV ESV A4C36.3 mLLV ESV A2C28.2 mLLV ESV BP31.8 mL LVEF(%) A4C63.7 %LVEF(%) A2C65.0 %LVEF(%) BP64.9 % LV SV A4C63.7 mlLV SV A2C52.4 mlLV SV BP58.8 ml LV CO A4C5.3 L/minLV CO A2C4.3 L/minLV CO BP4.8 L/min HR A4C83.88 BPMHR A2C82.54 BPMLV EDV Index (BP) LA Volume LA Length A4C4.6 cmLA Length A2C LA Area A4C s 10.24 cm2LA Area A2C s LA Vol A4C A-L19.17 mLLA Vol A2C A-LLA Vol Biplane A-L LA Vol A4C MOD18.4 mLLA Vol A2C MODLA Vol BP MOD RA Volume RA Area A4C15.3 cm2RA ESV A4C (A-L)36.8mLRA Vol/BSA A4C A-L RA Length A4C5.4 cmRA ESV A4C (MOD)35.4mL LV Diastology MV E' medial0.110 (>0.07 m/s)MV E Vmax 0.51 (0.4-1.3 m/s) MV E/E' MED4.66 (<14)MV A Vmax 0.80 (0.4-1.3 m/s) MV E' lateral0.123 (>0.1 m/s)E/A Ratio 0.6 MV E/E' LAT4.16 (<14) MV E' Average0.117 m/s MV E/E'(average)4.40 Aortic Valve LVOT Vmax 1.05 m/s LVOT Peak Grad 4.4 mmHg LVOT VTI0.205 m LVOT Mean Grad 2.1 mmHg LVOT SV 74.73 mL LVOT Diam s 2.15 cm Mitral Valve MV DT 120 (160-240 msec) Pulmonary Valve PV Vmax 1.00 (0.5-1.5 m/s)RVOT Vmax 0.66 m/s PV Peak Grad 4.0 mmHgRVOT Peak Gr.1.7 mmHg PV Mean Vel0.67 m/sRVOT VTI0.134 m PV Mean Grad 2.0 mmHgRVOT Mean Gr.0.8 mmHg Tricuspid Valve RA Pressure 3.00 mmHgTR Vmax 2.86 m/s TR Peak Grad 32.6 mmHg RVSP (TR) 35.6 mmHg Ordered By: Dony iKm M.D. CC: Dictated By: Kathya Louis M.D. 08/02/23 1037 <Electronically signed by Kathya Louis M.D. in OV> 08/02/23 1050 Transcribed By: Kathya Louis MD 08/02/23 1037 This is privileged, confidential information intended only for the provider named. Any use or distribution by any person other than this provider is strictly prohibited. If you receive this report in error, please notify us immediately at [phone] and return the original report to us at the address above. Thank-you. Anesthesia Assessment and Plan Anesthesia History Personal History: No History of Anesthesia Complications Family History: No Family History of Anesthesia Complications Exercise Tolerance Exercise Tolerance: Metabolic Equivalents>4 Pertinent Negatives Pertinent Negatives: No Symptoms of GERD Cardiac & Pulmonary Exam Cardiac Exam: Normal S1/S2 Heart Sounds Pulmonary Exam: Clear Bilateral Breath Sounds Implantable Cardiac Device Does patient have a Pacemaker or an ICD?: No Airway Exam Known Difficult Airway: No Mallampati Class: 3 Mouth Opening: Normal (> 3cm) Thyromental Distance: Greater than 3 cm Neck Range of Motion: Full ROM Neck Circumference: Normal Teeth Condition: Normal Dentition ASA Classification ASA Score: ASA 3 Emergency Case?: No NPO Status NPO Status: NPO Clears >2 hours, Solids >8 hours Anesthesia Plan Resuscitation Status: Full Code Anesthesia Technique: General Anesthesia Airway Planned: Natural Airway Monitors Used: Standard Monitors Preoperative Comments:: History of PE, DVT (Xarelto stopped 2 days ago), CAD (Has not used NTG for years)
[2024-02-09 08:37] VITALS: BMI 23.9
--- NOTE | 2024-02-09 10:14 | BOWEL_PTH ---
PATIENT: Tony Griffin LOC: [facility] U#:[id number] AGE/SX: 78/M ROOM: RE02/09/[address]: Thomas Carrillo MD : 1945 BED: DIS: 02/09/2024 SPEC #: [id number] RECD: 02/09/24 12:20 STATUS: LISA REQ #: [id number] KATHI: 02/09/24 10:[address]: Thomas Carrillo DEPT: Surgical Specimen RECD BY: Sonya Frye ENTERED: 02/09/24 12:21 SP TYPE: Bowel OTHR DR: Lisa Akers DO Tissues: 1 - BIOPSY BOWEL Procedures: GROSS AND MICRO LEVEL 4 Comments: [id number]
[2024-02-09 10:27] VITALS: BP 106/67; PULSE 65; RESP 16; TEMP 36.5; O2SAT 97
--- NOTE | 2024-02-09 10:32 | W.ANESPOSTOP ---
Postoperative Evaluation Date, Time and Location Date Performed: 02/09/24 Time Performed: 10:32 Patient Location: Day Surgery Unit Vital Signs Most Recent Imported Vital Signs: Most Recent Vital Signs Temp Pulse Resp BP Pulse Ox 36.5 C 65 16 106/67 97 02/09/24 10:27 02/09/24 10:27 02/09/24 10:27 02/09/24 10:27 02/09/24 10:27 Pain Score Most Recent Pain Score: Most Recent Pain Score Pain Level 0 02/09/24 10:27 Assessment Mental Status: Arousable with meaningful communication Airway and Respiratory Function: Patent airway with normal (patient baseline) respiratory exam Cardiovascular Function: Hemodynamically Stable Hydration Status: Adequately Hydrated Nausea & Vomiting: No Nausea or Vomiting Pain: Pt. Denies Any Pain Peripheral Nerve Block: Patient did not receive a nerve block
[2024-02-09 10:59] VITALS: RESP 16; TEMP 36.6; O2SAT 98
[2024-02-09 11:01] VITALS: BP 129/74
== END 2024-02-09 11:21 | disposition home or self-care (01) ==
LOC: SUR 07:34
PROVIDERS: PCP Student in an Organized Health Care Education/Training Program; Visit Provider Surgery
PROC: 0DJD8ZZ Inspection of Lower Intestinal Tract, Via Natural or Artificial Opening Endoscopic (ICD-10-PCS; CPT 45378; principal; 2024-02-09 09:15)
DX: Z12.11 Encounter for screening for malignant neoplasm of colon (principal); I25.10 Atherosclerotic heart disease of native coronary artery without angina pectoris; I82.412 Acute embolism and thrombosis of left femoral vein; K63.5 Polyp of colon; K55.20 Angiodysplasia of colon without hemorrhage; Z79.01 Long term (current) use of anticoagulants; I48.91 Unspecified atrial fibrillation
CPT/HCPCS: 45380; 45382; 88305; J2001; J2704

== ENCOUNTER 2024-02-10 05:14 | Outpatient (CLI) | payer MEDICARE, SELFPAY ==
[2024-02-10 15:22] LABS: ALT 20 U/L (16-63); AST 9 U/L (15-37); Albumin 3.7 g/dL (3.4-5.0); Alkaline Phosphatase 65 U/L (46-116); Anion Gap 8.3 mmol/L (3-11); BUN 18 mg/dL (7-18); Bilirubin, Total 0.6 mg/dL (0.2-1.0); CO2 27.7 mmol/L (21.0-32.0); CREATININE 0.9 mg/dL (0.70-1.30); Calcium 8.5 mg/dL (8.5-10.1); Chloride 107 mmol/L (98-107); Estimated GFR 88.51 (mL/min/1.73m2); Glucose 96 mg/dL (74-106); Potassium 3.9 mmol/L (3.5-5.1); Sodium 143 mmol/L (136-145); Total Protein 6.9 g/dL (6.4-8.2)
[2024-02-10 16:26] LABS: Vitamin D 25 Total 51.5 ng/mL (30-100)
== END 2024-02-10 05:15 | disposition home or self-care (01) ==
LOC: LBO 05:14
PROVIDERS: PCP Student in an Organized Health Care Education/Training Program; Referring Provider Student in an Organized Health Care Education/Training Program; Visit Provider Student in an Organized Health Care Education/Training Program
DX: R79.89 Other specified abnormal findings of blood chemistry (principal); I25.10 Atherosclerotic heart disease of native coronary artery without angina pectoris; R60.9 Edema, unspecified; Z91.89 Other specified personal risk factors, not elsewhere classified; N28.9 Disorder of kidney and ureter, unspecified; Z12.11 Encounter for screening for malignant neoplasm of colon
CPT/HCPCS: 36415; 80053; 82306

== ENCOUNTER 2025-06-26 02:13 | Outpatient (CLI) | payer MEDICARE, SELFPAY ==
[2025-06-26 07:57] LABS: Abs Immature Grans 0.01 10^3/uL (0.0-0.06); HCT 43.4 % (40.0-50.0); HGB 14.2 g/dL (13.5-17.5); Immature Grans % 0.3 %; MCH 33.3 pg (27.0-33.0); MCHC 32.7 % (32.0-36.0); MCV 102 fL (80-95); MPV 10.1 fL (8.0-11.0); Platelet Count 149 10^3/uL (130-400); RBC 4.26 10^6/uL (4.36-5.78); RDW 13.5 % (11.8-14.1); RDW-SD 51.2 fL; WBC 3.73 10^3/uL (4.4-10.8)
[2025-06-26 08:40] LABS: ALT 33 U/L (16-63); AST 17 U/L (15-37); Albumin 3.9 g/dL (3.4-5.0); Alkaline Phosphatase 77 U/L (46-116); Anion Gap 5.8 mmol/L (3-11); BUN 21 mg/dL (7-18); Bilirubin, Total 0.8 mg/dL (0.2-1.0); CO2 31.2 mmol/L (21.0-32.0); Calcium 8.8 mg/dL (8.5-10.1); Calculated LDL 51 mg/dL (<100); Chloride 105 mmol/L (98-107); Cholesterol 111 mg/dL (<200); Estimated GFR 91.15 (mL/min/1.73m2); Glucose 90 mg/dL (74-106); HDL Cholesterol 55 mg/dL (>or=40); Potassium 4.4 mmol/L (3.5-5.1); Sodium 142 mmol/L (136-145); TSH 4.51 uIU/mL (0.36-3.74); Total Protein 7.0 g/dL (6.4-8.2); Triglyceride 26 mg/dL (<150)
[2025-06-26 14:51] LABS: Hemoglobin A1C 5.3 % (<5.7)
[2025-06-26 18:47] LABS: PSA, Screening 0.5 ng/mL (<=6.5)
== END 2025-06-26 02:14 | disposition home or self-care (01) ==
LOC: LBO 02:13
PROVIDERS: Visit Provider Family Medicine
DX: Z00.00 Encounter for general adult medical examination without abnormal findings (principal)
CPT/HCPCS: 36415; 80053; 80061; 84153; 83036; 84443; 85025

== ENCOUNTER 2025-09-12 15:50 | Outpatient (REF) | payer MEDICARE, SELFPAY ==
[2025-09-12 18:48] LABS: HCT 43.8 % (40.0-50.0); HGB 14.0 g/dL (13.5-17.5); MCH 33.0 pg (27.0-33.0); MCHC 32.0 % (32.0-36.0); MCV 103 fL (80-95); MPV 10.6 fL (8.0-11.0); Platelet Count 148 10^3/uL (130-400); RBC 4.24 10^6/uL (4.36-5.78); RDW 13.5 % (11.8-14.1); RDW-SD 51.9 fL; WBC 3.65 10^3/uL (4.4-10.8)
[2025-09-12 19:25] LABS: TSH (W/Ref FT4) 2.50 uIU/mL (0.55-4.78)
== END 2025-09-12 15:51 | disposition home or self-care (01) ==
LOC: NCHCN 15:50
PROVIDERS: Visit Provider Family Medicine
DX: E03.9 Hypothyroidism, unspecified (principal); Z79.01 Long term (current) use of anticoagulants
CPT/HCPCS: 85027; 84443